=== PATIENT | female | born 1960 | race Caucasian/White ===

== ENCOUNTER 2019-09-03 11:23 | Inpatient (IN) ==
--- NOTE | 2019-09-03 14:30 | Diag Imaging Result Doc PS360 ---
ABDOMEN FLAT/UPRIGHT - 09/03/2019 INDICATION: abd pain; colon cancer COMPARISON: 08/06/2019 FINDINGS: There is a nonobstructive bowel gas pattern. No free air or abdominal calcifications. There is no constipation. IMPRESSION: No acute disease. Electronically signed by Marcelo Bethea 09/03/2019 2:28 PM
--- NOTE | 2019-09-03 14:30 | Diag Imaging Result Doc PS360 ---
CHEST-2 VIEWS - 09/03/2019 INDICATION: r/o pna COMPARISON: 07/22/2019 FINDINGS: The lungs are normally expanded and clear. Heart size and mediastinal contours are normal. No pneumothorax or pleural effusion. IMPRESSION: Negative exam. Electronically signed by Marcelo Bethea 09/03/2019 2:28 PM
--- NOTE | 2019-09-03 14:35 | HISTORY AND PHYSICAL ---
1. A patient of Dr. Jeffrey Sebastian, followed also by Dr. Fer Moss. Recently found to have metastatic colon cancer. This is a 59-year-old who apparently just had a colonoscopy. They found a mass in the colon. She is here for a partial colon resection. She initially thought she had pancreatic cancer but found she had colon cancer, I believe with multiple metastases to the liver on her CAT scan. She is under treatment with Dr. Moss. 2. History of headaches. 3. History of pelvic inflammatory disease with gonorrhea back in her 20s. PAST SURGICAL HISTORY: Tonsillectomy. FAMILY HISTORY: Of cancer both in her mom and dad. SOCIAL HISTORY: She smokes about a half pack of cigarettes a day. She has lost a lot of weight in the last several months. Denies any alcohol or illicit drugs. ALLERGIES: No known drug allergies. REVIEW OF SYSTEMS: General: She has lost weight from a poor appetite, anorexia, poor eating. Respiratory: No increased work of breathing or dyspnea. Cardiovascular: No chest pain or tachy palpitations. GI/ No gross hematuria, dysuria. Musculoskeletal/Neurologic: No significant complaints. Endocrinologic/hemologic: No significant history. PHYSICAL EXAMINATION: GENERAL: Today, awake and alert. HEENT: Pupils are equal. CVP less than 6 cm. LUNGS: Clear anterior and posterior. CARDIOVASCULAR EXAMINATION: Regular rhythm and rate without murmur or S3. ABDOMEN: Soft, nondistended, nontender. She is hurting mainly in her back, generalized pain. EXTREMITIES: No pedal edema. SKIN: No skin rashes. Oral and nasal mucosa unremarkable. ASSESSMENT/PLAN: 1. Metastatic colon cancer with liver metastasis found, coin lesion. Dr. Toledo is going to be following. We will check her CBC check T4, TSH, B12. We will give her some normal saline at 85 mL an hour. Consult Dr. Toledo, Dr. Moss. 2. Nutrition. Poor appetite aware. cc: MD CARA Blackman
--- NOTE | 2019-09-03 15:17 | EKG Report ---
Test Performed on : 09/03/2019 3:08:13 PM Test Reason : preop ekg; elijah roth Blood Pressure : / mmHG Vent. Rate : 085 BPM Atrial Rate : 085 BPM P-R Int : 144 ms QRS Dur : 074 ms QT Int : 384 ms P-R-T Axes : 081 060 060 degrees QTc Int : 456 ms Normal sinus rhythm. Normal ECG When compared with ECG of 26-JUN-2019 16:06, No significant change was found Confirmed by Bala MCKEON, Avery Trevizo ([id number]) on 09/04/2019 7:46:23 AM
[2019-09-03 15:36] LABS: BASO# 0.04 X1000 (0.0-0.2); BASO% 0.6 % (0.0-0.8); EOS# 0.11 X1000 (0.0-0.7); EOS% 1.6 % (0.0-10.0); HEMATOCRIT 35.5 % (37.0-47.0); HEMOGLOBIN 11.6 g/dL (12.0-16.0); LYMPH# 2.38 X1000 (1.2-3.4); MCHC 32.7 g/dL (33-37); MCV 94.9 FL (81-99); MONO# 0.86 X1000 (0.11-0.59); MONO% 12.3 % (1.7-9.3); MPV 8.6 FL (7.4-10.4); NEUT# 3.61 X1000 (1.4-6.5); NEUT% 51.5 % (42.2-75.2); PLT 401 X1000 (130-400); RBC 3.74 XMIL (4.2-5.4); RDW 15.5 % (11.5-14.5)
[2019-09-03 15:37] LABS: INR 1.05; PROTIME 13.9 Seconds (11.0-16.0)
[2019-09-03 15:38] LABS: PTT 30.6 Seconds (22.3-41.8)
[2019-09-03 15:40] LABS: AGAP 13; ALB/GLOB RATIO 1.4; ALBUMIN 4.1 g/dL (3.5-5.0); ALKALINE PHOSPHATASE 110 U/L (32-104); BUN 9 mg/dL (8-22); CALCIUM 8.9 mg/dL (8.8-10.2); CHLORIDE 99 mmol/L (98-107); CK TOTAL 147 U/L (24-173); COSMO 273; CREATININE 0.5 mg/dL (0.5-0.9); ESTIMATED GFR > 60; GLUCOSE 108 mg/dL (70-104); GOT 19 U/L (10-30); GPT 10 U/L (10-36); IRON SATURATION 12 %; MAGNESIUM 2.2 mg/dL (1.5-2.7); PHOSPHORUS 3.3 mg/dL (2.7-4.5); POTASSIUM 3.1 mmol/L (3.5-5.1); SODIUM 137 mmol/L (136-145); TCO2 25 mmol/L (25-35); TIBC 301 ug/dL; TOTAL BILIRUBIN 0.47 mg/dL (0.20-1.00); TOTAL IRON 37 ug/dL (49-151); UNBOUND IRON 264 ug/dL (112-346)
[2019-09-03] MEDS: MORPHINE IV PRN ×2 (15:51→23:34)
[2019-09-03] MEDS: NS 1,000 ML IV SCH (15:54)
[2019-09-03 16:07] LABS: FREE T4 1.31 ng/dL (0.93-1.70); TSH 1.54 uIUmL (0.27-4.20)
[2019-09-03 16:21] LABS: HEMOGLOBIN A1C 4.5 % (4.8-6.0)
[2019-09-03 16:39] LABS: BANDS 4 % (0-1); EOS 1 % (1-10); LYMPHS 44 % (21-51); MONO 2 % (1-9); SEGS 48 % (42-75)
--- NOTE | 2019-09-03 20:57 | GENERAL SURGERY CONSULTATION ---
DATE: 09/03/2019 REASON FOR CONSULTATION: Obstructing colon cancer, metastatic. CHIEF COMPLAINT: Abdominal pain. HISTORY OF PRESENT ILLNESS: This is a 59-year-old female who has been under the care of Dr. Moss. She has a large sigmoid mass and at the time of diagnosis was found to have hepatic metastasis. She developed some worsening abdominal pain. Dr. Yañez attempted colonoscopy and was unable to traverse the lesion and let along place a stent and so she has been admitted for management. She continues to pass gas. Her bowel movements have changed. She denies any significant bleeding. She has had some weight loss. Decreased appetite. She is already very small. MEDICAL HISTORY: Is significant for smoking use. She has a history of pelvic inflammatory disease in her 20s. She has chronic pain for which she takes opiates. SURGICAL HISTORY: No abdominal surgery. She had a tonsillectomy. FAMILY HISTORY: Is significant for lung and breast cancer I believe. SOCIAL HISTORY: She smokes a half pack a day. She also smokes marijuana, but no other drugs or alcohol. REVIEW OF SYSTEMS: Ten point review of systems was performed and negative otherwise as mentioned in the HPI. FAMILY HISTORY: As noted. MEDICATIONS: She takes Adderall and [place]. PHYSICAL EXAMINATION: Vital Signs: Temperature is 97.8 degrees, pulse 85, blood pressure 124/69, O2 saturation 99%. She is 91 pounds, 5 foot 3. General: She is alert, in no acute distress. HEENT: No scleral icterus. No cervical mass. Cardiovascular: Normal rate. Pulmonary: No increased work of breathing. Abdomen: Soft, nontender. Integument: Warm, dry without jaundice. Psychiatric: Appropriate affect. Neurologic: No gross deficits. Musculoskeletal: She does have some muscle atrophy throughout. Lymphatic: No cervical, axillary or inguinal adenopathy. LABS: White count 7, hematocrit 35, platelets 401,000. Creatinine is 0.5. Mild elevation in her alkaline phosphatase. Her albumin is 4.1. I reviewed her imaging. ASSESSMENT AND PLAN: A 59-year-old female with metastatic sigmoid colon cancer. I have recommended operation tomorrow lap hand-assisted sigmoid colectomy most likely with end colostomy given her obstruction, malnutrition, ongoing smoking as well as to facilitate her palliative chemotherapy. We discussed risk of bleeding, infection, anastomotic leak, and conversion to open, anticipated recovery, possibility of a colostomy. She understands all this and consents. We will make her NPO at midnight, but really only sips for comfort in the meantime with IV hydration and plan for surgery tomorrow. cc: Vicki Schmidt MD
[2019-09-03] MEDS: ZOFRAN IV PRN (23:34)
[2019-09-04] MEDS: NS 1,000 ML IV SCH ×2 (05:10→15:32)
[2019-09-04] MEDS ORDERED: DIPRIVAN 1% ONE (06:20)
[2019-09-04] MEDS ORDERED: VERSED ONE (06:20)
[2019-09-04] MEDS ORDERED: FENTANYL ONE (06:20)
[2019-09-04] MEDS ORDERED: XYLOCAINE-MPF 2% ONE (06:28)
[2019-09-04] MEDS ORDERED: NEO-SYNEPHRINE ONE (06:34)
[2019-09-04] MEDS ORDERED: ROBINUL ONE ×2 (06:34→08:57)
[2019-09-04] MEDS ORDERED: ZOFRAN ONE (06:34)
[2019-09-04] MEDS ORDERED: STERILE WATER INJ. ONE (06:34)
[2019-09-04] MEDS ORDERED: NORCURON ONE (06:34)
[2019-09-04] MEDS ORDERED: SENSORCAINE 0.25%/EPI 1:200,000 ONE (06:35)
[2019-09-04] MEDS ORDERED: LR 1,000 ML ONE (06:35)
[2019-09-04] MEDS ORDERED: QUELICIN (DOSE) ONE (06:40)
[2019-09-04] MEDS ORDERED: MARCAINE 0.25% PF ONE (06:42)
[2019-09-04] MEDS ORDERED: EXPAREL 1.3% ONE (06:42)
[2019-09-04] MEDS ORDERED: SODIUM CHLORIDE 0.9% 10 ML ONE (06:42)
[2019-09-04 06:51] LABS: BASO# 0.05 X1000 (0.0-0.2); EOS# 0.07 X1000 (0.0-0.7); EOS% 1.3 % (0.0-10.0); HEMATOCRIT 32.6 % (37.0-47.0); HEMOGLOBIN 10.4 g/dL (12.0-16.0); LYMPH% 28.5 % (20.5-51.1); MCH 30.2 PG (27-31); MCHC 31.9 g/dL (33-37); MCV 94.8 FL (81-99); MONO# 0.47 X1000 (0.11-0.59); MONO% 8.9 % (1.7-9.3); MPV 8.5 FL (7.4-10.4); NEUT# 3.17 X1000 (1.4-6.5); NEUT% 60.3 % (42.2-75.2); PLT 404 X1000 (130-400); RBC 3.44 XMIL (4.2-5.4); RDW 15.2 % (11.5-14.5); WBC 5.26 X1000 (4.8-10.8)
[2019-09-04] MEDS ORDERED: INVANZ 1 GM/NS 1 GM/50 ML IVPB IV ONE (07:00)
[2019-09-04 07:12] LABS: AGAP 13; ALB/GLOB RATIO 1.3; ALBUMIN 3.7 g/dL (3.5-5.0); ALKALINE PHOSPHATASE 105 U/L (32-104); BUN 6 mg/dL (8-22); CALCIUM 8.9 mg/dL (8.8-10.2); CHLORIDE 105 mmol/L (98-107); COSMO 278; CREATININE 0.6 mg/dL (0.5-0.9); ESTIMATED GFR > 60; GLUCOSE 79 mg/dL (70-104); GOT 20 U/L (10-30); GPT 10 U/L (10-36); MAGNESIUM 2.1 mg/dL (1.5-2.7); POTASSIUM 4.1 mmol/L (3.5-5.1); SODIUM 141 mmol/L (136-145); TCO2 23 mmol/L (25-35); TOTAL BILIRUBIN 0.71 mg/dL (0.20-1.00); TOTAL PROTEIN 6.5 g/dL (6.3-8.3)
[2019-09-04] MEDS ORDERED: DECADRON ONE (07:49)
[2019-09-04] MEDS ORDERED: EPHEDRINE ONE (07:54)
[2019-09-04] MEDS ORDERED: OFIRMEV 1000 MG/ISOTONIC SOLN 1,000 MG/100 ML BOTTLE ONE (08:38)
[2019-09-04] MEDS ORDERED: NEOSTIGMINE ONE (08:57)
[2019-09-04 09:11] LABS: URINE SOURCE CATH
[2019-09-04 09:19] LABS: BILIRUBIN URINE NEGATIVE (NEGATIVE); BLOOD URINE NEGATIVE (NEGATIVE); COLOR YELLOW; GLUCOSE URINE NEGATIVE (NEGATIVE); KETONE URINE NEGATIVE (NEGATIVE); LEUKOCYTES URINE NEGATIVE (NEGATIVE); NITRITE URINE NEGATIVE (NEGATIVE); PH URINE 6.5; PROTEIN URINE NEGATIVE (NEGATIVE); SP GRAVITY URINE 1.013; TURBIDITY URINE HAZY (CLEAR); UROBILINOGEN URINE 2 mg/dL (NORMAL)
[2019-09-04 09:20] LABS: UR EPITHELIAL CELLS <10 /HPF (<10); URINE BACTERIA 3+ /HPF; URINE RBC <10 /HPF (<10); URINE WBC <10 /HPF (<10)
[2019-09-04] MEDS: DILAUDID ONE ×4 (09:29→09:43)
[2019-09-04] MEDS: PHENERGAN ONE (09:50)
--- NOTE | 2019-09-04 10:11 | PROGRESS NOTE ---
DATE: 09/04/2019 SUBJECTIVE: She was admitted. She has obstructing colon cancer metastatic. Dr. Jeffrey Sebastian and has been under the care of Dr. Moss. Large sigmoid mass diagnosis, and was found to have hepatic metastasis. She developed worsening abdominal pain. GI tried to do a colonoscopy, but unable to transverse the lesion, let alone place a stent so she was admitted for further evaluation and probable surgery. The only significant history is she has a history of smoking, history of pelvic inflammatory disease in her 20s, and chronic pain for which she takes opiates. So the plan is for surgery this morning. OBJECTIVE: Vital Signs: Temperature 97.1 degrees, pulse 60, respirations 14, and blood pressure 122/78 HEENT: Pupils are equal and round. Lungs: Clear in all lung ramos. Cardiovascular: Regular rhythm and rate without murmur or S3. Abdomen: Soft. Skin: Warm and dry. LABORATORY: Urine output was 1000 mL. REVIEW OF ORDERS: I do not see any change. She is on ertapenem, she has got 1 g IV for surgery. cc: Cramine Mcleod MD
[2019-09-04] MEDS: MORPHINE IV PRN ×3 (12:00→20:19)
--- NOTE | 2019-09-04 13:14 | HEMO/ONC CONSULTATION ---
DATE: 09/04/2019 REASON FOR CONSULTATION: This is a known patient of ours for the treatment of colon adenocarcinoma with liver metastasis. HISTORY OF PRESENT ILLNESS: The patient was admitted yesterday for resection of her obstructing sigmoid mass. The patient had a colonoscopy on Monday, and was found to have an obstructing large sigmoid mass. She had an increase in her abdominal pain. She denies any change in bowel movements, any rectal bleeding or melena, or any nausea, vomiting, or diarrhea. Her prior staging scans have revealed diffuse liver metastasis. PAST MEDICAL HISTORY: Adult ADD. Chronic pain. Smoker. Chronic headaches. PAST SURGICAL HISTORY: Tonsillectomy. SOCIAL HISTORY: The patient smokes about half a pack of cigarettes a day. She denies any alcohol use. The patient smokes 2 to 3 marijuana joints per day. Denies any other illicit drug use. ALLERGIES: No known drug allergies. HOME MEDICATIONS: [place] 10 and Adderall 30 mg b.i.d. REVIEW OF SYSTEMS: The patient is positive for weight loss, fevers, night sweats, fatigue, and abdominal pain. She also has chronic back pain with arthritis and chronic headaches. PHYSICAL EXAMINATION: Vital Signs: Temperature 97.4 degrees, pulse rate 68, respiratory rate 14, blood pressure 156/72, and O2 saturation 100% on 2 L via nasal cannula. She is in 10/10 abdominal pain. General: The patient is anxious, but otherwise in no acute distress. HEENT: Sclerae is anicteric. PERRLA. Respiratory: Lung sounds are clear to auscultation. Normal respiratory effort. Cardiovascular: Normal S1, S2. Heart rate and rhythm is regular. Abdomen: Soft. Nondistended. Nontender. Extremities: No edema is noted. Skin: Warm, dry, and intact without ecchymosis or petechiae. Neurologic: Alert and oriented x3. No focal motor deficits. LABORATORY: WBCs 5.26, hemoglobin 10.4, hematocrit 32.6, and platelet count 404,000. Magnesium 2.1. Iron and B12 adequate. Folate 8.4. ASSESSMENT AND PLAN: 1. Metastatic colon adenocarcinoma with liver metastasis, obstructing sigmoid mass found on colonoscopy. Dr. Schmidt has taken her to the OR today for colon resection. Continue management per medical and surgical staff. She will continue to follow closely and await pathology. After recovery, need to start palliative chemotherapy. Dictated by JOSE Nation for Fer Moss MD cc: Fer Moss MD [facility]
[2019-09-04] MEDS: ULTRAM PO PRN (13:35)
[2019-09-04] MEDS: OFIRMEV 1000 MG/ISOTONIC SOLN 1,000 MG/100 ML BOTTLE IV SCH ×2 (15:29→20:18)
[2019-09-04] MEDS: PERIDEX MT SCH (20:18)
[2019-09-04] MEDS: SODIUM CHLORIDE 0.9% INJ PRN (20:19)
[2019-09-04] MEDS: PHENERGAN IV PRN (20:19)
--- NOTE | 2019-09-04 20:40 | OPERATIVE NOTE ---
PROCEDURE DATE: 09/04/2019 PREOPERATIVE DIAGNOSIS: Obstructive sigmoid rectal cancer. POSTOPERATIVE DIAGNOSIS: Obstructive sigmoid rectal cancer. PROCEDURE PERFORMED: Laparoscopic hand assisted low anterior resection with end colostomy and mobilization of the splenic flexure. ESTIMATED BLOOD LOSS: 20 mL. SPECIMENS: Sigmoid colon and proximal rectum. ANESTHESIA: General with TAP block. OPERATIVE FINDINGS: There was a tattooed lesion, large segment, apple core type lesion, in the distal sigmoid/proximal rectum with proximal dilation. There were some adjacent peritoneal implants that appeared consistent with focal carcinomatosis. This was adherent to the left lateral pelvic sidewall. OPERATIVE NOTE: Risks, benefits, and alternatives were discussed with the patient and she consented to the procedure. Seen preoperatively. Surgical site was confirmed. She was taken to the operating room and placed in supine position. General anesthesia was induced. A TAP block was performed by Anesthesia. For details, please see dictated operative note. She was placed in lithotomy and a Day catheter was placed, and her abdomen was prepped with chlorhexidine solution and draped in the usual fashion. After time-out, we made a periumbilical incision for our hand port and carried this down through the fascia, incised the fascia, and entered the abdomen in an open controlled fashion. A GelPort was placed and we then placed an 11 mm trocar in the supraumbilical midline, and insufflated the abdomen. We inspected and then placed a right lower quadrant 5 mm trocar lateral to the inferior epigastric vessels. Using a LigaSure, we began mobilizing the lateral attachments. After fully mobilizing this, we carried our mobilization along the white line of Toldt up to and taking down the splenic flexure to provide adequate reach for the colostomy. We then identified the feeding vessels. Given her known metastatic disease and no visible pathologically enlarged lymph nodes, we took these at the bifurcation including the sigmoid branch, but we did preserve a left colonic branch to provide adequate perfusion to the colostomy. We did mobilize this to provide adequate reach. After fully mobilizing, we did protect the retroperitoneal structures and ureters. The colon was adherent to the left ovary, but we were able to mobilize this off. There was no evidence of ovarian neoplasm. At this point, we desufflated, brought the colon out through the hand port, and using the KG 80 mm blue load staple, we resected proximally and distally. The colostomy incision was made in the left lower quadrant through the rectus, and the colostomy was brought out. We then closed the fascia with #1 PDS and 0 Vicryl at the port site, and the skin was closed with 4-0 Monocryl in subcuticular fashion. There was no contamination in this portion. We excluded the incisions and then matured our colostomy in Dulce Maria fashion with 3-0 Vicryl suture. She tolerated this well. Ostomy appliance was placed as well as Dermabond to her incision. She was awoken and transferred to the recovery area. There was no family available. cc: Vicki Schmidt MD
[2019-09-05] MEDS: OFIRMEV 1000 MG/ISOTONIC SOLN 1,000 MG/100 ML BOTTLE IV SCH ×2 (02:27→08:52)
[2019-09-05] MEDS: MORPHINE IV PRN ×7 (02:33→22:05)
[2019-09-05] MEDS: ULTRAM PO PRN ×2 (07:25→17:45)
--- NOTE | 2019-09-05 08:12 | GENERAL SURGERY PROGRESS NOTE ---
DATE: 09/05/2019 SUBJECTIVE: She is doing well. No ostomy output yet. Pain is controlled. No fevers. No tachycardia. Blood pressure 115/68. Urine output has been adequate. No new labs yet this morning. ASSESSMENT AND PLAN: This is a 59-year-old female status post [*] hand-assisted low anterior resection with end colostomy for obstructing metastatic colon cancer. Will discontinue her Day today. Encourage her to be out of bed and ambulating, pulmonary toileting, intravenous hydration. cc: Vicki Schmidt MD
[2019-09-05] MEDS: MAG-OX PO SCH (08:43)
[2019-09-05] MEDS: NS 1,000 ML IV SCH ×2 (08:46→20:54)
[2019-09-05] MEDS: LOVENOX SUBQ SCH (08:53)
[2019-09-05] MEDS: PERIDEX MT SCH ×2 (08:55→20:54)
--- NOTE | 2019-09-05 09:05 | PROGRESS NOTE ---
DATE: 09/05/2019 SUBJECTIVE: She had a pretty good night, is comfortable at the present time. Just had her surgery yesterday. OBJECTIVE: Vital Signs: Temp 97.7 degrees, pulse 92, respirations 16, blood pressure 137/71. HEENT: Pupils are equal and round. Lungs: Clear in all lung ramos. Cardiovascular: Regular rhythm and rate without murmur or S3. Urine output is a little over 4000 mL. ASSESSMENT AND PLAN: Hand-assisted low anterior resection with end colostomy for obstructive metastatic colon cancer. Continue her Day catheter in, and work towards getting out of bed, pulmonary toilet, and intravenous hydration. She appears comfortable at this time. REVIEW OF ORDERS: Getting morphine 2 mg IV every 3 hours p.r.n., Lovenox 40 mg subcutaneously every 24 hours, normal saline at 85 mL an hour, tramadol 50 mg every 6 hours p.r.n., and on Zosyn 3.375 grams intravenously every 6 hours, ertapenem she got 1 gram one time before surgery. cc: Carmine Mcleod MD
[2019-09-05] MEDS: ZOSYN 3.375 GM in NS 50 ML IV SCH ×3 (09:07→20:54)
[2019-09-05] MEDS: DILAUDID ONE (16:58)
[2019-09-05] MEDS: PHENERGAN ONE (16:58)
[2019-09-05] MEDS: SODIUM CHLORIDE 0.9% INJ PRN (22:05)
[2019-09-05] MEDS: PHENERGAN IV PRN (22:05)
[2019-09-06] MEDS: NS 1,000 ML IV SCH ×3 (01:08→18:21)
[2019-09-06] MEDS: ZOSYN 3.375 GM in NS 50 ML IV SCH ×4 (02:32→21:40)
[2019-09-06] MEDS: ULTRAM PO PRN ×2 (02:32→14:40)
[2019-09-06] MEDS: SODIUM CHLORIDE 0.9% INJ PRN (04:38)
[2019-09-06] MEDS: MORPHINE IV PRN ×5 (04:38→21:47)
[2019-09-06] MEDS: PHENERGAN IV PRN (04:38)
[2019-09-06] MEDS: MAG-OX PO SCH (08:23)
[2019-09-06] MEDS: LOVENOX SUBQ SCH (08:23)
[2019-09-06] MEDS: PERIDEX MT SCH ×2 (08:23→21:39)
--- NOTE | 2019-09-06 10:16 | PROGRESS NOTE ---
DATE: 09/06/2019 SUBJECTIVE: Ms. Coe had a pretty good night. She slept. She is hurting. Feels a little better than yesterday. OBJECTIVE: Vital signs: Temp 98.6 degrees, pulse 108, respirations 20, blood pressure 146/93. HEENT: Pupils are equal and round. Lungs: Are clear in all lung ramos. Cardiovascular: Regular rhythm and rate without murmur or S3. URINE OUTPUT: Was 3700 mL. ASSESSMENT AND PLAN: Status post hand assisted anterior resection with end colostomy and for obstructive metastatic colon cancer. Day catheter in place. Awaiting on return of peristalsis. Continue IV hydration seems to be comfortable. On review of orders, I do not see any change. Lab is unremarkable. We will check electrolytes and CBC again in the morning. cc: Carmine Mcleod MD
--- NOTE | 2019-09-06 15:04 | GENERAL SURGERY PROGRESS NOTE ---
DATE: 09/06/2019 SUBJECTIVE: Doing well. Pain is controlled. She is ambulating. She voided. She is tolerating some p.o., a little bit of flatus from her bag. Reviewed her vital signs, reviewed her labs. Abdomen is soft. ASSESSMENT AND PLAN: A 59-year-old female status post laparoscopic low anterior resection with end colostomy. She is doing well. Will continue ostomy education, advancing her diet as tolerated, out of bed and mobilizing and will let her go home when she has consistent return of ostomy function. cc: Vicki Schmidt MD
[2019-09-07] MEDS: MORPHINE IV PRN ×3 (03:57→15:30)
[2019-09-07] MEDS: ZOFRAN IV PRN ×2 (03:58→21:13)
[2019-09-07] MEDS: ZOSYN 3.375 GM in NS 50 ML IV SCH ×4 (04:01→21:12)
[2019-09-07] MEDS: NS 1,000 ML IV SCH ×2 (04:12→17:52)
[2019-09-07] MEDS: PHENERGAN IV PRN ×3 (04:36→18:36)
[2019-09-07 05:53] LABS: BASO# 0.01 X1000 (0.0-0.2); BASO% 0.1 % (0.0-0.8); EOS# 0.01 X1000 (0.0-0.7); EOS% 0.1 % (0.0-10.0); HEMATOCRIT 35.7 % (37.0-47.0); HEMOGLOBIN 11.6 g/dL (12.0-16.0); LYMPH# 0.98 X1000 (1.2-3.4); LYMPH% 11.4 % (20.5-51.1); MCH 30.4 PG (27-31); MCHC 32.5 g/dL (33-37); MCV 93.5 FL (81-99); MONO# 0.57 X1000 (0.11-0.59); MONO% 6.7 % (1.7-9.3); MPV 8.8 FL (7.4-10.4); NEUT# 6.99 X1000 (1.4-6.5); NEUT% 81.7 % (42.2-75.2); PLT 524 X1000 (130-400); RBC 3.82 XMIL (4.2-5.4); WBC 8.56 X1000 (4.8-10.8)
[2019-09-07 06:36] LABS: AGAP 13; BUN 13 mg/dL (8-22); CALCIUM 8.5 mg/dL (8.8-10.2); CHLORIDE 100 mmol/L (98-107); COSMO 276; CREATININE 0.5 mg/dL (0.5-0.9); ESTIMATED GFR > 60; GLUCOSE 137 mg/dL (70-104); MAGNESIUM 1.9 mg/dL (1.5-2.7); POTASSIUM 4.4 mmol/L (3.5-5.1); SODIUM 137 mmol/L (136-145); TCO2 24 mmol/L (25-35)
[2019-09-07] MEDS: MAG-OX PO SCH (08:34)
[2019-09-07] MEDS: LOVENOX SUBQ SCH (08:34)
[2019-09-07] MEDS: PERIDEX MT SCH ×2 (08:34→21:13)
--- NOTE | 2019-09-07 08:44 | PROGRESS NOTE ---
DATE: 09/07/2019 SUBJECTIVE: Ms. Opal Coe is a 59-year-old female who 3 days ago underwent a laparoscopic hand-assisted low anterior colon resection with end colostomy and mobilization of the splenic flexure per Dr. Schmidt. She vomited this morning. She has no NG tube. OBJECTIVE: Her abdomen is distended but not tightly. Her ostomy is viable; there has been no output. Her heart rate is 103 blood pressure 167/93, O2 saturation 99%. She is afebrile. She is on IV Zosyn. Her white blood cell count is normal. Hematocrit is 36%. BUN and creatinine are 13 and 0.5. Her trocar sites seem to be healing well. There is no abnormal tenderness involving her abdomen. PLAN: We may have to place an NG tube if she continues to be nauseated. She asked that we not do it this morning. We will continue to have her increase her activity. She is on liquids and we will leave her on a clear liquid diet this morning. We will continue IV Zosyn for now. cc: Shana Arias MD
--- NOTE | 2019-09-07 11:19 | PROGRESS NOTE ---
DATE: 09/07/2019 SUBJECTIVE: Ms. Coe is feeling better, not much bowel activity. She was sitting up breathing comfortably. OBJECTIVE: Vital Signs: Temperature 98.6 degrees, pulse 103, respirations 18, blood pressure 167/93. Eyes: Pupils are equal and round. Lungs: Lungs are clear in all lung ramos. Cardiovascular exam: Regular rhythm and rate without murmur or S3. Abdomen: Abdomen is soft. Skin: Skin is warm and dry. ASSESSMENT AND PLAN: Considering placing a nasogastric tube if she continues nausea, but that seems to be better today this morning though. She has not reported passing any gas or flatus at this time. Did not increase her activity. She is on intravenous Zosyn. She is status post laparoscopic low anterior resection with end colostomy. She seems to be progressing. Waiting on peristalsis. cc: Carmine Mcleod MD
--- NOTE | 2019-09-07 11:28 | HEMO/ONC PROGRESS NOTE ---
DATE: 09/07/2019 SUBJECTIVE: The patient is lying comfortably in bed with her eyes closed. She states that she is "okay." She admits that she is a little sore but otherwise doing well. She appears tired this morning. She is having a significant amount of nausea still. She is currently attempting take in clear liquids, she asked for a Sprite this morning. She had no significant events overnight. OBJECTIVE: Vital Signs: Temperature 98.6 degrees, pulse rate 113, respiratory rate 18, blood pressure 167/93, O2 saturation 96% on room air. She is in 8/10 abdominal pain. General: The patient is in no acute distress. HEENT: Sclerae anicteric. Oral mucosa is normal. Patient does not have her dentures in place. Cardiovascular: Normal S1, S2. Heart rate and rhythm regular. Respiratory: Lung sounds are clear to auscultation. Normal respiratory effort. Gastrointestinal: Abdomen is soft and nontender. New ostomy bag in place with pink healthy stoma visible. Extremities: No lower extremity edema. Patient is able to move all extremities at will. LABORATORY: WBC is 8.56, hemoglobin 11.6, hematocrit 35.7, platelet count 524,000. ASSESSMENT AND PLAN: Metastatic colon adenocarcinoma with liver metastasis, obstructing sigmoid mass found on colonoscopy. She is day 3 from laparoscopic hand-assisted low anterior colon resection with end colostomy and mobilization of the splenic flexure per Dr. Schmidt. Patient is under the care of surgical management at this time. Although nauseous, she appears to be doing very well. We are continuing to await pathology. We will start palliative chemotherapy after discharge. We will continue to follow peripherally. Please let us know if we are needed. We will follow up with the patient in the office outpatient. Dictated by JOSE Nation for Fer Moss MD cc: MD CARA Golden
[2019-09-07] MEDS: SODIUM CHLORIDE 0.9% INJ PRN ×2 (11:36→18:36)
[2019-09-08] MEDS: SODIUM CHLORIDE 0.9% INJ PRN ×4 (00:39→21:32)
[2019-09-08] MEDS: PHENERGAN IV PRN ×4 (00:39→21:32)
[2019-09-08] MEDS: ZOSYN 3.375 GM in NS 50 ML IV SCH ×4 (03:03→21:32)
[2019-09-08] MEDS: MORPHINE IV PRN ×2 (03:04→22:34)
[2019-09-08] MEDS: NS 1,000 ML IV SCH ×2 (03:04→19:09)
[2019-09-08] MEDS: ZOFRAN IV PRN (03:04)
[2019-09-08] MEDS: ULTRAM PO PRN ×3 (06:49→21:32)
[2019-09-08] MEDS: PERIDEX MT SCH ×2 (08:30→21:37)
[2019-09-08] MEDS: MAG-OX PO SCH (08:30)
[2019-09-08] MEDS: LOVENOX SUBQ SCH (08:30)
--- NOTE | 2019-09-08 09:47 | PROGRESS NOTE ---
DATE: 09/08/2019 SUBJECTIVE: Ms. Coe still has a good deal of nausea. She is not having any nausea right now but through the night, she has more trouble and just takes a couple sips of water. She still says she has to throw it back up. OBJECTIVE: Temperature 98.1 degrees, pulse 106, respirations 18, blood pressure 158/93. Pupils are equal and round. Lungs are clear in all lung ramos. Cardiovascular Examination: Regular rhythm and rate without murmur or S3. Abdomen is soft, nondistended. Colostomy unremarkable. She is having some mucus output from the colostomy. Urine output is 2100 mL. ASSESSMENT AND PLAN: Metastatic colon cancer, adenocarcinoma with liver metastasis, obstructing sigmoid mass found at colonoscopy. This is day 4 status post laparoscopic, hand-assisted low anterior colon resection with colostomy, mobilization of the splenic flexure per Dr. Schmidt. Patient still has some nausea. Waiting on peristalsis to improve. Continue to await pathology. The plan is to start some palliative chemotherapy. I am going to try her on some Reglan. See if a prokinetic will help decrease the nausea. We will just give her scheduled Reglan 10 mg intravenous every 6 hours. She is on normal saline at 85 mL an hour and she is getting Zosyn 3.375 g intravenous every 6 hours. She is on Lovenox 40 mg subcutaneous daily. cc: Carmine Mcleod MD
--- NOTE | 2019-09-08 09:54 | PROGRESS NOTE ---
DATE: 09/08/2019 SUBJECTIVE: Ms. Opal Coe is status post laparoscopic assisted colon resection per Dr. Schmidt with end-colostomy for obstructing cancer. She has had vomiting over the last 24 hours. She does not want an NG tube. She has had no output from her ostomy. Her abdomen is somewhat distended but not tightly so. She is good about sitting in a chair. OBJECTIVE: Her heart rate 106, blood pressure 158/93, O2 saturation 100%. She is afebrile. Her incision seems to be healing well. Her ostomy is viable but just no output. She has been on clear liquid diet. We will not advance that. She has been on IV antibiotics per Dr. Schmidt. Her last white blood cell count was normal. We will check labs in the morning. cc: Shana Arias MD
[2019-09-08] MEDS: REGLAN IV SCH ×2 (13:09→18:27)
[2019-09-09] MEDS: REGLAN IV SCH ×4 (00:45→18:55)
[2019-09-09] MEDS: ZOSYN 3.375 GM in NS 50 ML IV SCH ×3 (02:08→19:47)
[2019-09-09] MEDS: PHENERGAN IV PRN ×2 (04:58→12:59)
[2019-09-09] MEDS: ULTRAM PO PRN (04:58)
[2019-09-09 07:08] LABS: BASO# 0.02 X1000 (0.0-0.2); BASO% 0.3 % (0.0-0.8); EOS# 0.02 X1000 (0.0-0.7); EOS% 0.3 % (0.0-10.0); HEMATOCRIT 34.1 % (37.0-47.0); HEMOGLOBIN 11.1 g/dL (12.0-16.0); LYMPH# 1.38 X1000 (1.2-3.4); LYMPH% 18.5 % (20.5-51.1); MCH 30.4 PG (27-31); MCHC 32.6 g/dL (33-37); MCV 93.4 FL (81-99); MONO# 0.94 X1000 (0.11-0.59); MONO% 12.6 % (1.7-9.3); MPV 8.7 FL (7.4-10.4); NEUT% 68.3 % (42.2-75.2); PLT 489 X1000 (130-400); RBC 3.65 XMIL (4.2-5.4); RDW 15.1 % (11.5-14.5); WBC 7.46 X1000 (4.8-10.8)
[2019-09-09 07:24] LABS: AGAP 15; BUN 20 mg/dL (8-22); CALCIUM 8.4 mg/dL (8.8-10.2); CHLORIDE 100 mmol/L (98-107); COSMO 272; CREATININE 0.4 mg/dL (0.5-0.9); ESTIMATED GFR > 60; GLUCOSE 83 mg/dL (70-104); POTASSIUM 3.7 mmol/L (3.5-5.1); SODIUM 135 mmol/L (136-145); TCO2 20 mmol/L (25-35)
--- NOTE | 2019-09-09 09:17 | PROGRESS NOTE ---
DATE: 09/09/2019 SUBJECTIVE: Ms. Coe is still having nausea. We are having trouble with her peripheral IV, so we are going to put a PICC line. She is getting some mucus drainage in her colostomy and feeling some gas as well. OBJECTIVE: Vital Signs: Temperature 97.6 degrees, pulse 100, respirations 16, blood pressure 160/88. HEENT: Pupils are equal and round. Lungs: Clear in all lung ramos. Cardiovascular: Regular rhythm and rate without murmur or S3. Abdomen: Soft. Skin: Warm and dry. LABORATORY DATA: Reviewed labs from yesterday. White count 7460, hematocrit 34, platelet count 489,000. Sodium 135, potassium 3.7, chloride 100, BUN 20, creatinine 0.4. ASSESSMENT AND PLAN: The patient is status post laparoscopic-assisted anterior colon resection with end colostomy for obstructing colon cancer. Still has nausea. I think we are going to put a PICC line in. We might be able to give her fluids and antiemetics, so we will do that today. She is passing gas. Still have her on Zosyn 3.375 g IV q.6. I am giving her Reglan 10 mg IV q.6 hours as well. Continue present regimen. cc: Carmine Mcleod MD
[2019-09-09 10:26] LABS: INR 1.14; PROTIME 14.8 Seconds (11.0-16.0)
[2019-09-09] MEDS ORDERED: NS 250 ML ONE (10:59)
[2019-09-09] MEDS: MORPHINE IV PRN ×3 (12:59→23:15)
[2019-09-09] MEDS: SODIUM CHLORIDE 0.9% INJ PRN (12:59)
[2019-09-09] MEDS: NS 1,000 ML IV SCH ×2 (13:00→15:09)
[2019-09-09] MEDS: LOVENOX SUBQ SCH (13:01)
[2019-09-09] MEDS: MAG-OX PO SCH (15:10)
[2019-09-09] MEDS: PERIDEX MT SCH ×2 (17:07→19:47)
--- NOTE | 2019-09-09 19:51 | GENERAL SURGERY PROGRESS NOTE ---
DATE: 09/09/2019 SUBJECTIVE: Still continues to have nausea, vomiting, although she is having ostomy output. No fevers. Low-grade tachycardia blood pressure 132/109. LABORATORIES: Her white count is normal at 7, hematocrit 34, creatinine 0.4, potassium 3.7. Urine output has been adequate. ABDOMINAL EXAMINATION: Her abdomen is soft. Incisions are intact. Ostomy is pink, viable. She does have some urine in the bag, but no stool yet. ASSESSMENT AND PLAN: This is a 59-year-old female status post low anterior resection with end colostomy for obstructing colon cancer. She has a resolving ileus. Given her resumption of flatus, I have encouraged her to be NPO and to ambulate as much as possible. Hopefully with continued resumption in her ostomy output, we can begin advancing her diet. If it worsens, we will need to place a nasogastric tube. I did discuss this, but she does not want it at this time. cc: Vicki Schmidt MD
[2019-09-09] MEDS: ZOFRAN IV PRN (23:15)
[2019-09-10] MEDS: REGLAN IV SCH ×3 (00:42→19:00)
[2019-09-10] MEDS: NS 1,000 ML IV SCH ×3 (00:42→14:36)
[2019-09-10] MEDS: ZOSYN 3.375 GM in NS 50 ML IV SCH ×4 (02:19→20:08)
[2019-09-10] MEDS: PERIDEX MT SCH ×3 (04:57→20:08)
[2019-09-10] MEDS: ZOFRAN IV PRN ×4 (05:47→23:13)
[2019-09-10] MEDS: MORPHINE IV PRN ×4 (05:47→23:13)
[2019-09-10] MEDS: LOVENOX SUBQ SCH (08:31)
[2019-09-10] MEDS: MAG-OX PO SCH (08:31)
[2019-09-10] MEDS: ULTRAM PO PRN ×2 (12:00→18:13)
[2019-09-10] MEDS: PHENERGAN IV PRN (15:45)
[2019-09-10] MEDS: SODIUM CHLORIDE 0.9% INJ PRN (15:45)
--- NOTE | 2019-09-10 15:47 | GENERAL SURGERY PROGRESS NOTE ---
DATE: 09/10/2019 SUBJECTIVE: She began passing more flatus per colostomy, a little bit of stool in the bag. She still has some intermittent nausea and reflux she describes. No fevers. Low-grade tachycardia. OBJECTIVE: Blood pressure 136/82. Abdomen is soft. Ostomy is pink, viable. She is nondistended. LABS: White count 6. Hematocrit 34. Creatinine 0.4. ASSESSMENT: This is a 59-year-old female status post Dimitri's procedure low anterior with an end-colostomy for obstructing colon cancer. Her pathology has shown an invasive carcinoma T4 with 19 of 23 lymph nodes positive and positive circumferential margin. PLAN: Will allow her ileus to resolve. Katherin Dunn continues to work with her. She is on prophylactic Lovenox. It looks as though her PPI has fallen off; we will start this back intravenously. cc: Vicki Schmidt MD
[2019-09-10] MEDS: SODIUM CHLORIDE 0.9% INJ SCH (20:08)
[2019-09-10] MEDS: NEXIUM IV SCH (23:04)
[2019-09-11] MEDS: REGLAN IV SCH ×4 (00:49→18:30)
[2019-09-11] MEDS: NS 1,000 ML IV SCH ×3 (03:05→17:44)
[2019-09-11] MEDS: ZOSYN 3.375 GM in NS 50 ML IV SCH ×4 (03:05→20:34)
[2019-09-11] MEDS: ULTRAM PO PRN ×2 (09:01→18:30)
[2019-09-11] MEDS: NEXIUM IV SCH ×2 (09:01→20:34)
[2019-09-11] MEDS: ZOFRAN IV PRN (09:01)
[2019-09-11] MEDS: SODIUM CHLORIDE 0.9% INJ SCH ×2 (09:01→20:34)
[2019-09-11] MEDS: PERIDEX MT SCH ×2 (09:01→20:33)
[2019-09-11] MEDS: MAG-OX PO SCH (09:01)
[2019-09-11] MEDS: LOVENOX SUBQ SCH (09:02)
[2019-09-11] MEDS: MORPHINE IV PRN ×2 (16:11→22:16)
--- NOTE | 2019-09-11 18:57 | PROGRESS NOTE ---
DATE: 09/11/2019 SUBJECTIVE: Patient has no major complaints. She seems in a better mood today, but still not much ostomy output. OBJECTIVE: Vital Signs: Blood pressure 146/71, heart rate 97, respiratory rate 16, temperature 98.2 degrees. Cardiovascular: Regular rate and rhythm. Pulmonary: Bilateral breath sounds. Clear to auscultation. GI: Soft, nontender, nondistended. Bowel sounds are positive. LABORATORY DATA: White count 7, hemoglobin and hematocrit 11 and 34, platelets 489,000. Basic was normal. PROBLEM LIST: Obstructing colon cancer, status post colon resection with colostomy. She is still having some postoperative ileus, but she does have some output from her ostomy, just not enough that they have progressed with her diet at this point, so mainly she is surgical care. We are kind of just monitoring her other issues, but she does not really have any major medical issues. Plan will be to continue to follow. Disposition at the discretion of surgery and will advance her diet, I guess hopefully soon, maybe full liquids tomorrow at the discretion of Surgery. She is 107 pounds. I think we can just do 30 of Lovenox. She is definitely below 70 kg, so we will continue to follow. cc: Kervin Winston MD
[2019-09-11] MEDS: PHENERGAN IV PRN (22:16)
--- NOTE | 2019-09-11 22:30 | GENERAL SURGERY PROGRESS NOTE ---
DATE: 09/11/2019 SUBJECTIVE: She is having more output from her ostomy. No more vomiting. OBJECTIVE: Abdomen is soft. Incision intact. Her ostomy is well perfused. ASSESSMENT AND PLAN: A 59-year-old female status post low anterior with end colostomy. Will continue gradually advance her diet as tolerated. I have encouraged to be out of bed and ambulating. She is completing a course of antibiotics for a urinary tract infection. She is on a proton pump inhibitor and Lovenox. cc: Vicki Schmidt MD
[2019-09-12] MEDS: ZOSYN 3.375 GM in NS 50 ML IV SCH ×4 (01:33→21:30)
[2019-09-12] MEDS: NS 1,000 ML IV SCH ×2 (01:33→13:26)
[2019-09-12] MEDS: REGLAN IV SCH ×4 (01:34→17:43)
[2019-09-12] MEDS: NEXIUM IV SCH ×2 (08:18→21:30)
[2019-09-12] MEDS: PERIDEX MT SCH ×2 (08:18→21:29)
[2019-09-12] MEDS: MAG-OX PO SCH (08:18)
[2019-09-12] MEDS: LOVENOX SUBQ SCH (08:18)
[2019-09-12] MEDS: SODIUM CHLORIDE 0.9% INJ SCH ×2 (08:18→21:30)
[2019-09-12] MEDS: MORPHINE IV PRN ×2 (10:07→15:29)
[2019-09-12] MEDS: LASIX PO SCH (16:25)
--- NOTE | 2019-09-12 18:00 | GENERAL SURGERY PROGRESS NOTE ---
DATE: 09/12/2019 SUBJECTIVE: She is doing well. She had stool per her ostomy. Her abdomen is soft. No nausea. She is hungry. She does note some diffuse swelling. OBJECTIVE: On exam, her ostomy is pink and viable with air in the bag. Abdomen is soft. ASSESSMENT AND PLAN: A 59-year-old female status post low anterior resection with end colostomy. We will advance her diet to soft and I stopped her IV fluids. Plan for maybe home tomorrow. cc: Vicki Schmidt MD
[2019-09-13] MEDS: REGLAN IV SCH ×2 (01:12→06:06)
[2019-09-13] MEDS: ZOSYN 3.375 GM in NS 50 ML IV SCH ×2 (01:12→09:12)
--- NOTE | 2019-09-13 01:19 | PROGRESS NOTE ---
DATE: 09/12/2019 SUBJECTIVE: Patient has no major complaints. OBJECTIVE: Vital signs: Stable. No fevers. Cardiovascular: Regular rate and rhythm. Pulmonary: Bilateral breath sounds clear to auscultation. Gastrointestinal: Soft, nontender, nondistended. LABORATORY DATA: White count 7, hemoglobin and hematocrit 11 and 34, platelets 489,000. Electrolytes are okay. Sodium is 135, but stable. PROBLEM LIST: Colon cancer status post colostomy. PLAN: Will be to continue to follow. We will continue to treat. Monitor. Really will decide on discharge soon, but anticipate discharge tomorrow if stabilizes. cc: Kervin Winston MD
[2019-09-13] MEDS: MORPHINE IV PRN ×2 (06:06→13:03)
[2019-09-13] MEDS ORDERED: PRILOSEC PO SCH (07:00)
[2019-09-13] MEDS: PERIDEX MT SCH (09:12)
[2019-09-13] MEDS: LOVENOX SUBQ SCH (09:13)
[2019-09-13] MEDS: MAG-OX PO SCH (09:13)
[2019-09-13] MEDS: LASIX PO SCH (09:13)
[2019-09-13 11:56] VITALS: BP 122/70
[2019-09-13] MEDS: PHENERGAN IV PRN (13:03)
--- NOTE | 2019-09-13 21:00 | DISCHARGE SUMMARY ---
ADMISSION DATE: 09/03/2019 DISCHARGE DATE: 09/13/2019 DISCHARGE DIAGNOSES: Metastatic colon cancer status post resection and colostomy. HOSPITAL COURSE: Ms. Coe is a 59-year-old female who was diagnosed as having colon cancer and was admitted to the hospital for resection of the colon cancer. She already had resection done and has had colostomy. Her hospital course has been uneventful and she has been doing well. Since her condition has improved, we are going to be discharging her time today. DISCHARGE MEDICATIONS: 1. Adderall 30 mg orally twice daily. 2. [place] 10 mg 3 to 4 times a day as needed for pain. 3. Omeprazole 40 mg orally once daily. 4. Metoclopramide 10 mg 3 times a day 30 minutes prior to meals. FOLLOW-UP INSTRUCTIONS: She will follow up with Dr. Moss 1 week. Follow up with Dr. Rogerio Schmidt in 2 to 5 days. She will also follow up with her PCP, Dr. Sebastian in approximately 1 to 2 weeks. CONDITION: Stable. DISPOSITION: Home. cc: Lulu Delatorre MD
== END 2019-09-13 14:56 | disposition home health service (06) | DRG 329 ==
LOC: SUATTDRO 11:23 → DIRADM 11:23 → EDIPHOLD 12:35 → 4N 17:01
PROVIDERS: ATTEND Internal Medicine
PROC: GE.COLS (2019-09-04 07:01)

== ENCOUNTER 2019-09-16 11:54 | Inpatient (IN) ==
[2019-09-16 13:53] LABS: BASO# 0.03 X1000 (0.0-0.2); BASO% 0.2 % (0.0-0.8); EOS# 0.05 X1000 (0.0-0.7); EOS% 0.3 % (0.0-10.0); HEMATOCRIT 37.6 % (37.0-47.0); HEMOGLOBIN 12.3 g/dL (12.0-16.0); IMM GRAN# 0.06 X1000 (0.0-0.04); IMM GRAN% 0.4 % (0.0-0.5); LYMPH# 1.82 X1000 (1.2-3.4); LYMPH% 11.7 % (20.5-51.1); MCH 31.1 PG (27-31); MCHC 32.7 g/dL (33-37); MCV 94.9 FL (81-99); MONO# 1.04 X1000 (0.11-0.59); MONO% 6.7 % (1.7-9.3); MPV 9.7 FL (7.4-10.4); NEUT# 12.62 X1000 (1.4-6.5); NEUT% 80.7 % (42.2-75.2); PLT 667 X1000 (130-400); RBC 3.96 XMIL (4.2-5.4); RDW 16.6 % (11.5-14.5); WBC 15.62 X1000 (4.8-10.8)
[2019-09-16 14:01] LABS: INR 0.99; PROTIME 13.1 Seconds (11.0-16.0)
[2019-09-16 14:02] LABS: PTT 30.3 Seconds (22.3-41.8)
--- NOTE | 2019-09-16 14:06 | Diag Imaging Result Doc PS360 ---
EXAM: CHEST-1 VIEW HISTORY: sepsis protocol TECHNIQUE: Chest single view COMPARISON: 09/03/2019 FINDINGS: Poor inspiratory effort. There is basilar atelectasis with tiny effusions. No cardiomegaly. No pulmonary edema. No consolidation. IMPRESSION: Basilar atelectasis with tiny effusions Electronically signed by Jay Au 09/16/2019 2:04 PM
[2019-09-16 14:11] LABS: URINE SOURCE CATH
--- NOTE | 2019-09-16 14:16 | EKG Report ---
Test Performed on : 09/16/2019 2:06:46 PM Test Reason : abd distention Blood Pressure : / mmHG Vent. Rate : 108 BPM Atrial Rate : 108 BPM P-R Int : 124 ms QRS Dur : 070 ms QT Int : 342 ms P-R-T Axes : 072 051 078 degrees QTc Int : 458 ms Sinus tachycardia. Nonspecific ST and T wave abnormality Abnormal ECG When compared with ECG of 03-SEP-2019 15:08, ST now depressed in Anterior leads Unconfirmed Result
[2019-09-16 14:17] LABS: AGAP 13; ALB/GLOB RATIO 1.2; ALBUMIN 3.7 g/dL (3.5-5.0); ALKALINE PHOSPHATASE 95 U/L (32-104); BUN 14 mg/dL (8-22); CALCIUM 8.8 mg/dL (8.8-10.2); CHLORIDE 91 mmol/L (98-107); COSMO 271; CREATININE 0.4 mg/dL (0.5-0.9); ESTIMATED GFR > 60; GLUCOSE 78 mg/dL (70-104); GOT 28 U/L (10-30); GPT 13 U/L (10-36); POTASSIUM 2.9 mmol/L (3.5-5.1); SODIUM 136 mmol/L (136-145); TCO2 32 mmol/L (25-35); TOTAL BILIRUBIN 0.56 mg/dL (0.20-1.00); TOTAL PROTEIN 6.7 g/dL (6.3-8.3)
[2019-09-16 14:33] LABS: BILIRUBIN URINE SMALL (NEGATIVE); BLOOD URINE NEGATIVE (NEGATIVE); COLOR YELLOW; GLUCOSE URINE NEGATIVE (NEGATIVE); KETONE URINE 40 mg/dL (NEGATIVE); LEUKOCYTES URINE NEGATIVE (NEGATIVE); NITRITE URINE NEGATIVE (NEGATIVE); PROTEIN URINE 50 mg/dL (NEGATIVE); TURBIDITY URINE HAZY (CLEAR); UR EPITHELIAL CELLS <10 /HPF (<10); URINE BACTERIA NEGATIVE /HPF; URINE WBC <10 /HPF (<10); UROBILINOGEN URINE 2 mg/dL (NORMAL)
[2019-09-16 14:45] LABS: URINE CASTS NONE SEEN; URINE CRYSTALS CA OXALATE PRESENT; URINE YEAST NONE SEEN
[2019-09-16] MEDS ORDERED: DILAUDID IV ONE (15:23)
[2019-09-16] MEDS ORDERED: NS 1,000 ML IV ONE (15:23)
[2019-09-16] MEDS ORDERED: ZOFRAN IV ONE (15:23)
--- NOTE | 2019-09-16 15:38 | Diag Imaging Result Doc PS360 ---
EXAM: CT ABD/PELVIS W/IV CONT ONLY 09/16/2019 HISTORY: abd distention/obstruction TECHNIQUE: This exam was performed using automated exposure control, adjustment of mA or kV according to patient size, and/or use of iterative reconstruction technique. COMMENT: The current examination is compared with the previous study of 08/20/2019 and that of 06/17/2019. There are bilateral pleural effusions which were not previously present and atelectasis versus pneumonia is present in both lower lobes on the right middle lobe. Compared to the previous examination, which was performed without contrast the hepatic metastatic lesions which were evident at the time the previous study are again noted. The most posterior medial in the right hepatic lobe measures almost 5 cm in AP dimension and has probably not changed significantly in size since the previous study. The lesion near the [place] hepatis in the right lobe measures 4.4 cm in anterior posterior dimension compared to 4.4 cm previously. These lesions were smaller on 06/17/2019. The spleen, kidneys, adrenal glands and pancreas are stable in appearance. There is pneumoperitoneum. There is gas in the anterior subcutaneous fat. The stomach is markedly distended. There is distention of the small bowel with the exception of the most distal small bowel. There is a descending colostomy. The transition point in the small bowel appears to be just below the level of the colostomy on the left side of the abdomen and may be related to an internal hernia or adhesion. The appendix is normal in appearance. There is extensive anasarca in the subcutaneous fat. Pelvis: There is a fairly large amount of free fluid in the pelvis with some enhancement of the peritoneal surfaces in the cul-de-sac which may be indicative of peritonitis. There is a bone island in the ischium on the right which has not changed since 06/17/2019. Otherwise the regional skeleton is stable in appearance. IMPRESSION: 1. Pneumoperitoneum. 2. Small bowel obstruction. 3. Metastatic disease in the liver is stable or slightly improved since previous studies. 4. Ascites and anasarca. The possibility of peritonitis cannot be excluded. The findings were discussed with Brent Márquez MD at 09/16/2019 3:36 PM. Electronically signed by Onesimo Mckeon 09/16/2019 3:36 PM
[2019-09-16 15:46] LABS: CK INDEX 0.9 (0.0-2.5); CK-MB 1.85 ng/mL (0.0-5.0)
[2019-09-16] MEDS ORDERED: ATIVAN IV ONE (15:55)
[2019-09-16] MEDS ORDERED: ZOFRAN IV PRN (17:25)
--- NOTE | 2019-09-16 17:30 | Diag Imaging Result Doc PS360 ---
EXAM: CHEST/ABD TUBE PLACEMENT 09/16/2019 HISTORY: NGT verify placement TECHNIQUE: AP upright portable at 1655 COMMENT: There is pneumoperitoneum. There is an NG tube in the stomach. The stomach is markedly distended. There is atelectasis in both lung bases as there was on 09/16/2019 at 1359. IMPRESSION: NG tube in the stomach. Electronically signed by Onesimo Mckeon 09/16/2019 5:27 PM
[2019-09-16] MEDS: POTASSIUM CHLORIDE 40 MEQ in NS 250 ML IV SCH (18:40)
[2019-09-16] MEDS: NS 1,000 ML IV SCH (18:40)
--- NOTE | 2019-09-16 19:47 | HISTORY AND PHYSICAL ---
PRIMARY CARE PHYSICIAN: Dr. Sebastian. SURGEON: Dr. Rogerio Schmidt. CHIEF COMPLAINT: Generalized abdominal pain and nausea, vomiting since having her colostomy replaced 2 weeks ago. HISTORY OF PRESENTING ILLNESS: This is a 59-year-old female who presents to [facility] with complaints of generalized abdominal pain and nausea, vomiting. States that she has had abdominal pain since having her colostomy replaced 2 weeks ago. She has had some small amount of stool in her colostomy since it was replaced. She has a history of liver and stomach cancer. Her workup showed a CT of the abdomen and pelvis with a pneumoperitoneum and a small bowel obstruction, ascites and anasarca with the possibility of peritonitis could not be excluded. Chest x-ray showed basilar atelectasis with tiny effusions. White blood cell count was 15.62, potassium was 2.9, plasma lactate was 1.3 so she will be admitted for further evaluation and treatment. PAST MEDICAL HISTORY: Of liver and stomach cancer, ADHD and GERD. PAST SURGICAL HISTORY: Of tonsillectomy, colon resection with colostomy placement and the colostomy was replaced 2 weeks ago. FAMILY HISTORY: Reviewed and noncontributory. SOCIAL HISTORY: She currently lives alone. Smokes 4 cigarettes daily. Denies any alcohol or illicit drug use. ALLERGIES: She has no known drug allergies. HOME MEDICATIONS: Will all be held. She takes Adderall 30 mg p.o. b.i.d., [place] 10 one p.o. q.6 hours p.r.n., Reglan liquid 10 mg p.o. t.i.d. a.c. and Prilosec 40 mg p.o. daily. LABORATORY DATA: Showed a white blood cell count of 15.62, hemoglobin 12.3, hematocrit 37.6, platelets 667,000, PT and INR of 13.1 and 0.99. Sodium 136, potassium 2.9, chloride 91, CO2 32, BUN 14, creatinine 0.4, glucose 78, creatine kinase of 198, CK-MB of 1.85, troponin less than 0.010 with a plasma lactate of 1.3. Urinalysis was negative. CT of abdomen and pelvis showed a pneumoperitoneum, small bowel obstruction, metastatic disease in the liver stable or slightly improved since previous study, ascites and anasarca with the possibility of peritonitis could not be excluded. Chest x-ray showed basilar atelectasis with tiny effusions. EKG showed sinus tachycardia at 108. REVIEW OF SYSTEMS: She denied any fever, chills, blurred vision, dizziness, chest pain, coughing, shortness of breath. She was positive for generalized abdominal pain, nausea, vomiting. Denied any diarrhea, no burning or hurting with urination. PHYSICAL EXAMINATION: On arrival she had a temperature of 98.6 degrees, pulse 108, respirations 22, blood pressure 120/77, saturating 98% on room air. GENERAL: This is a 59-year-old female who is sitting up in the bed and answers questions appropriately. HEENT: Normocephalic, atraumatic. Normal ENT inspection. Patient does have a NG tube to her right naris. Oropharynx and nares are clear. Pupils are equal, round, reactive to light, accommodation. Extraocular movements are intact. NECK: Normal inspection, normal range of motion. LUNGS: Clear to auscultation bilaterally with equal lung expansion and chest wall movement. HEART: Regular rate and rhythm. No murmurs, rubs, or gallops. ABDOMEN: Was firm and distended. Tenderness to palpation throughout abdomen. Colostomy bag in place. Bowel sounds were present x4 quadrants. MUSCULOSKELETAL: She had 5/5 strength x4 extremities. NEUROLOGICAL: The cranial nerves 2-12 appear grossly intact. ASSESSMENT: 1. Small bowel obstruction. 2. Leukocytosis. 3. Hypokalemia. 4. Tobacco abuse. 5. stage IV colon cancer with liver metastases 6. pneumoperitoneum 7. possible sepsis 8. gerd PLAN: She will be admitted to surgical unit, placed on telemetry, held NPO, NG tube to intermittent suction, consult Surgery, normal saline at 125 mL an hour, potassium 40 mEq IV now and repeat in 8 hours, Dilaudid 1 mg IV q.3 hours p.r.n., SCDs for DVT prophylaxis and recheck CBC, BMP in the a.m. Further orders after seen by attending and by [employer] sales consultant. Dictated by JOSE Ayers for Alex Carrasco MD cc: JOSE Ayers Dr. Agree with the above, the following is my own face to face assessment. bowel sounds decreased but not entirely absent. abdominal slightly distended but nontender. ostomy with essentially no output. will treat sbo conservatively and monitor. Pneumoperitoneum hopefully from previous procedure but as it was 3 weeks ago and she also has significant leukocytosis, there is some concern for occult perforation. however, given little to no tenderness and hemodynamic stability will treat conservatively with antibiotics and monitor. will see what surgery thinks about it. CARA
--- NOTE | 2019-09-16 21:27 | GENERAL SURGERY CONSULTATION ---
DATE: 09/16/2019 CHIEF COMPLAINT: Abdominal distention and nausea. REASON FOR CONSULTATION: Small bowel obstruction. HISTORY OF PRESENT ILLNESS: This is a 59-year-old female with metastatic colon cancer. She underwent a low anterior with end-colostomy approximately a week and a half ago. Her postoperative course, she did develop an ileus, but this resolved, and she went home and was feeling well. Her ostomy was functioning normally, and she was changing her bag without difficulty, but over the course of the day today, she has developed increasing abdominal distention with some nausea and some vomiting and decreased ostomy output. She is admitted for further evaluation. CT scan was obtained that showed some residual air within the subcutaneous space and a very small amount of air intraabdominally, massive dilation of the small bowel and stomach consistent with bowel obstruction, possible transition point near her colostomy. She has small bilateral effusions and some nonspecific fluid in her pelvis. MEDICAL HISTORY: Tobacco abuse, history of pelvic inflammatory disease, chronic pain, opiate use, metastatic rectal cancer. SURGICAL HISTORY: She has had a laparoscopic hand-assisted low anterior resection with end colostomy and a tonsillectomy. SOCIAL HISTORY: She smokes a half-pack a day, currently but heavier in the past. Also smokes marijuana and other drugs. REVIEW OF SYSTEMS: A 10 point review of systems was negative other than what is mentioned in the HPI. FAMILY HISTORY: Reviewed and noncontributory. MEDICATIONS: She does take [place] chronically. OBJECTIVE: General: She is afebrile, pulse has been in the low 100s, blood pressure 123/74, oxygen saturation is 96%. General: She is a very frail-appearing female, cachectic. HEENT: There is no scleral icterus. Cardiovascular: Sinus tachycardia. Pulmonary: No increased work of breathing. Abdomen: Distended, but soft. There is no peritonitis. Incisions are intact. Ostomy pink, viable with some stool in the bag, but minimal air. Integument is warm, dry. No lower extremity edema on peripheral vascular. Neurologic: No gross deficits. DIAGNOSTIC STUDIES: White count 15, hematocrit 37, platelets 667,000. INR 0.99. Creatinine 0.4. Bilirubin, AST, ALT, and alkaline phosphatase are normal. Lactate is 1.3. Urinalysis is negative for nitrates and leukocytes. I reviewed her CT scan. ASSESSMENT AND PLAN: This is a 59-year-old female with bowel obstruction status post low anterior with end-colostomy. She has massive dilation in her stomach and small bowel. We will placed an NG tube now. Her electrolytes are also deranged with a low potassium. Magnesium is pending. I have recommended admission to the hospitalist service with hydration, correction of electrolytes. She will need peripheral nutrition given the fact that she was not eating very much before surgery and has not really taken a lot of adequate p.o. since. Otherwise, her abdomen is distended, but I do not see any signs of peritonitis. I suspect that the air is most likely residual postoperatively, and I do not note teresa peritonitis. We discussed the possibility of an operation. I have recommended nasogastric tube decompression with the patient. She understands all this and consents to it. We will follow her closely. cc: Vicki Schmidt MD
[2019-09-17] MEDS ORDERED: STERILE WATER INJ. INJ PRN (03:37)
[2019-09-17] MEDS ORDERED: GEODON IM PRN (03:37)
[2019-09-17 07:07] LABS: BASO# 0.04 X1000 (0.0-0.2); BASO% 0.3 % (0.0-0.8); EOS# 0.08 X1000 (0.0-0.7); EOS% 0.5 % (0.0-10.0); HEMOGLOBIN 9.5 g/dL (12.0-16.0); IMM GRAN# 0.04 X1000 (0.0-0.04); IMM GRAN% 0.3 % (0.0-0.5); LYMPH# 1.33 X1000 (1.2-3.4); LYMPH% 8.9 % (20.5-51.1); MCH 30.4 PG (27-31); MCHC 31.7 g/dL (33-37); MCV 96.2 FL (81-99); MONO# 1.48 X1000 (0.11-0.59); MONO% 9.9 % (1.7-9.3); MPV 9.6 FL (7.4-10.4); NEUT# 12.04 X1000 (1.4-6.5); NEUT% 80.1 % (42.2-75.2); PLT 513 X1000 (130-400); RBC 3.12 XMIL (4.2-5.4); RDW 16.6 % (11.5-14.5); WBC 15.01 X1000 (4.8-10.8)
[2019-09-17 07:28] LABS: AGAP 12; BUN 15 mg/dL (8-22); CALCIUM 7.7 mg/dL (8.8-10.2); CHLORIDE 97 mmol/L (98-107); COSMO 273; CREATININE 0.3 mg/dL (0.5-0.9); ESTIMATED GFR > 60; GLUCOSE 77 mg/dL (70-104); POTASSIUM 3.3 mmol/L (3.5-5.1); SODIUM 137 mmol/L (136-145); TCO2 28 mmol/L (25-35)
[2019-09-17] MEDS: DILAUDID IV PRN ×4 (09:43→23:33)
--- NOTE | 2019-09-17 09:55 | Diag Imaging Result Doc PS360 ---
CHEST/ABD TUBE PLACEMENT - 09/17/2019 INDICATION: confirm tube placement COMPARISON: 09/16/2019 FINDINGS: There is a nasogastric tube in good position in the stomach. IMPRESSION: Nasogastric tube in the stomach. Electronically signed by Marcelo Bethea 09/17/2019 9:53 AM
[2019-09-17] MEDS: POTASSIUM CHLORIDE 40 MEQ in NS 250 ML IV SCH (10:26)
[2019-09-17] MEDS: NS 1,000 ML IV SCH ×2 (10:27→16:28)
[2019-09-17] MEDS ORDERED: CHLORASEPTIC SPRAY MT PRN (14:17)
[2019-09-17] MEDS ORDERED: LIPOSYN 20% 250 ML IV SCH (17:30)
--- NOTE | 2019-09-17 17:46 | PROGRESS NOTE ---
DATE: 09/17/2019 SUBJECTIVE: The patient seems in better spirits. Apparently overnight she took out her NG tube. She was refusing any treatments. She got very upset but she did not want to be discharged so now NG tube has been replaced. She is amenable to treatment. I think she just got very upset with the whole situation complicated and unpleasant diagnosis. OBJECTIVE: Blood pressure 119/54, heart rate of 101, respiratory rate of 20, temperature 98.6 degrees. She has been afebrile, 100% on room air.Cardiovascular: Regular rate and rhythm. Pulmonary: Bilateral breath sounds clear to auscultation. GI: Soft, nontender, nondistended. Bowel sounds are positive. LABORATORY DATA: White count 15, hemoglobin and hematocrit 9 and 30, platelets 513,000. Potassium is 3.3. PROBLEM LIST: 1. Small bowel obstruction with recent colostomy due to colon cancer. However, she has good output. She has positive bowel sounds so I think whatever it is, is resolving. We will repeat plain films tomorrow CT and follow. Surgery has been consulted I believe Dr. Schmidt and he is recommending just monitoring. I do not think she has peritonitis either at least not clinically and we will probably start her on Clinimix because she has been malnourished and follow closely. She is hypokalemic. We will supplement and follow. 2. Metastatic colon cancer, aware of diagnosis. At this point she is not amenable to further treatment until her other issues are resolved. cc: Kervin Winston MD
[2019-09-17] MEDS: CLINIMIX E 4.25%-5% SOLUTION 1,000 ML IV SCH (20:17)
[2019-09-17] MEDS: LIPOSYN 20% 250 ML IV SCH (22:45)
[2019-09-18] MEDS: DILAUDID IV PRN ×6 (02:37→16:54)
[2019-09-18 07:13] LABS: BASO# 0.03 X1000 (0.0-0.2); BASO% 0.2 % (0.0-0.8); EOS# 0.09 X1000 (0.0-0.7); EOS% 0.7 % (0.0-10.0); HEMATOCRIT 32.6 % (37.0-47.0); HEMOGLOBIN 10.4 g/dL (12.0-16.0); IMM GRAN# 0.03 X1000 (0.0-0.04); IMM GRAN% 0.2 % (0.0-0.5); LYMPH# 1.89 X1000 (1.2-3.4); LYMPH% 14.3 % (20.5-51.1); MCH 31.7 PG (27-31); MCHC 31.9 g/dL (33-37); MCV 99.4 FL (81-99); MONO# 1.18 X1000 (0.11-0.59); MONO% 8.9 % (1.7-9.3); MPV 9.3 FL (7.4-10.4); NEUT% 75.7 % (42.2-75.2); PLT 480 X1000 (130-400); RBC 3.28 XMIL (4.2-5.4); RDW 16.9 % (11.5-14.5); WBC 13.22 X1000 (4.8-10.8)
[2019-09-18 08:30] LABS: AGAP 17; BUN 13 mg/dL (8-22); CALCIUM 7.8 mg/dL (8.8-10.2); CHLORIDE 97 mmol/L (98-107); COSMO 269; CREATININE 0.3 mg/dL (0.5-0.9); ESTIMATED GFR > 60; GLUCOSE 71 mg/dL (70-104); POTASSIUM 4.7 mmol/L (3.5-5.1); SODIUM 135 mmol/L (136-145); TCO2 21 mmol/L (25-35)
[2019-09-18] MEDS ORDERED: SODIUM CHLORIDE 0.9% INJ SCH (09:00)
[2019-09-18] MEDS ORDERED: NEXIUM IV SCH (09:00)
--- NOTE | 2019-09-18 09:44 | GENERAL SURGERY PROGRESS NOTE ---
DATE: 09/18/2019 SUBJECTIVE: She had a large amount of colostomy output, she says that after passing a large particulate food matter, and her NG tube output is decreased. She feels much better. She continues to pass flatus per colostomy. OBJECTIVE: Her abdomen is much less distended and soft and nontender. No fevers. Heart rate now in the 90s. Blood pressure 120/74. Her incision intact. Ostomy is pink, viable. LABORATORY DATA: I reviewed her labs, this morning her white count is 13, her potassium is up to 4.7. Creatinine remains normal at 0.3. ASSESSMENT AND PLAN: A 59-year-old female with resolving ileus, status post low anterior resection. We will keep her NG tube at least through the day today. If she continues to have reliable ostomy output, we will remove her NG tube. Otherwise, would continue correct her electrolytes. I started her on prophylactic Lovenox and will also start IV PPI. She is on peripheral nutrition. cc: Vicki Schmidt MD
--- NOTE | 2019-09-18 09:44 | GENERAL SURGERY PROGRESS NOTE ---
DATE: 09/17/2019 SUBJECTIVE: NG tube output has been high, greater than 2 L. She feels much better. She has had a small amount of ostomy output. Her abdomen is much less distended and soft. I reviewed her labs. On the , her white count remained elevated at 15, her hematocrit was down to 30 with her hydration. Potassium is up to 3.3, creatinine 0.3. ASSESSMENT AND PLAN: A 59-year-old female with a bowel obstruction versus ileus, status post low anterior resection with end-colostomy for obstructing colon cancer. We will continue nasogastric tube decompression. Encourage her to be out of bed. Correcting her electrolytes and we started her on peripheral nutrition. cc: Vicki Schmidt MD
--- NOTE | 2019-09-18 12:05 | PROVIDER DOCUMENTATION ---
This chart was entered by Stephanie Rodriguez Scribe, acting as scribe for Brent Márquez MD. HPI-Abdominal Pain/GI Problem - General Chief Complaint: Abdominal Pain Stated Complaint: N/V, ABD Pain Time Seen by Provider: 09/16/19 12:46 Source: patient Allergies/Adverse Reactions: Patient Allergies Allergy/AdvReac Type Severity Reaction Status Date / Time No Known Allergies Allergy Verified 09/16/19 13:21 Home Medications: Home Medication List Medication Instructions Recorded Confirmed Last Taken Type Dextroamphetamine/Amphetamine 30 mg PO BID 07/22/19 09/16/19 09/03/19 06:00 History [Adderall 30 mg Tablet] Hydrocodone/Acetaminophen [[place] 1 ea PO Q6H PRN PRN #12 tab 09/13/19 09/16/19 Unknown Rx 10-325 Tablet] Metoclopramide [Reglan Liquid] 10 mg PO TID AC #90 udc 09/13/19 09/16/19 Unknown Rx Omeprazole [Prilosec] 40 mg PO DAILY@0700 #30 cap 09/13/19 09/16/19 Unknown Rx - History of Present Illness-ABD Nature of Presenting Problems: 59 yowf c/o generalized abd pain and distention w/ n/v since last night. pt had recently colostomy bag replaced 2 weeks ago and was d/c from hospital on monday. pt has hx of liver and stomach cancer. pt sts Dr. chew did sx. Dr. Sebastian is pt's pcp. pt pain is 10/10. denies fever, cp and urinary symptoms. pt unsure last BM. Abdominal Pain Onset Location: reports: generalized abdomen Pain Radiation: reports: no radiation Severity in ED: reports: mild Onset/Duration: reports: last night Timing: reports: still present Activities at Onset: reports: none Associated Symptoms: reports: nausea, vomiting. denies: diarrhea, fever/chills, genitourinary problems Last BM: unsure Dark Stools Present?: reports: none noticed Rectal Bleeding: reports: none Rectal Pain: reports: none Review of Systems - Adult - REVIEW OF SYSTEMS - ADULT Constitutional: reports: no symptoms reported. denies: chills, fever, night sweats Eyes: reports: no symptoms reported Ears, Nose, Mouth & Throat: reports: no symptoms reported Cardiovascular: reports: no symptoms reported. denies: chest pain, orthopnea, palpitations Respiratory: reports: no symptoms reported. denies: dyspnea on exertion, shortness of breath, wheezing Gastrointestinal: reports: see HPI, abdominal pain, nausea, vomiting, other (distention). denies: diarrhea, difficulty swallowing, frequent heartburn Genitourinary: reports: no symptoms reported. denies: dysuria, discharge, hematuria Musculoskeletal: reports: no symptoms reported Integumentary: reports: no symptoms reported Neurological: reports: no symptoms reported Psychiatric: reports: no symptoms reported Endocrine: reports: no symptoms reported Hematologic/Lymphatic: reports: no symptoms reported Allergic/Immunologic: reports: no symptoms reported All Other Systems: Reviewed and Negative Past History - Adult - PAST MEDICAL HISTORY-ADULT Review of Records: reports: Old Records Reviewed, Nursing Assessment Review, Medications Reviewed, Social history reviewed & non-contributory. Major Childhood Illnesses: reports: denies history Cardiovascular: reports: denies history Respiratory: reports: denies history Gastrointestinal: reports: cancer (liver and stomach) Obstetrical/Gynecological: reports: denies history Genitourinary: reports: denies history Musculoskeletal: reports: denies history Neurological: reports: denies history Endocrine/Immune: reports: denies history Other Conditions: reports: denies history - PRIOR SURGERIES/PROCEDURES Surgical/Procedure History: reports: reviewed, not pertinent, tonsillectomy, other - IMMUNIZATION STATUS Childhood Immunizations: See Nurse Assessment Flu Vaccine: See Nurse Assessment - FAMILY HISTORY Family History: reviewed, not pertinent - SOCIAL HISTORY Smoking: cigarettes, less than 1 pack/day Provider spent 3-5 mins advising pt. on dangers of tobacco.: Discussed manners to quit use, and f/u contacts for add'l counseling. Substance Use: none/never Physical Exam-General - PHYSICAL EXAM-ADULT Initial Vital Signs Reviewed: Yes - CONSTITUTIONAL General Appearance: alert, no apparent distress, thin. negative: anxious, lethargic, combative - EYES Eyes: PERRL/EOMI, pink conjunctivae - HEAD, EARS, NOSE, MOUTH & THROAT HENMT: normocephalic/atraumatic, moist mucous membranes, normal ENT inspection - NECK Neck: non-tender, full range of motion, supple, normal inspection - RESPIRATORY Respiratory: chest non-tender, lungs clear, normal breath sounds - CARDIOVASCULAR Cardiovascular: normal peripheral pulses, no edema, no gallop, no JVD, no murmur , tachycardia. negative: regular rate, rhythm, JVD, bradycardia - GASTROINTESTINAL (ABDOMEN) Abdominal Exam: normal bowel sounds, no organomegaly, no pulsatile mass, distended, tenderness (to palp general diffuse abd), other (colostomy bag in place.). negative: non tender, soft, guarding, rebound - LYMPHATIC Lymphatic: no adenopathy - MUSCULOSKELETAL Back Exam: normal inspection, no CVA tenderness, no vertebral tenderness Extremity: normal range of motion, non-tender, normal inspection Peripheral Pulses: radial (R): 2+, radial (L): 2+ - SKIN Integumentary: normal color, normal turgor, warm/dry - NEUROLOGIC Neurologic: grossly normal, no motor/sensory deficits - PSYCHIATRIC Psych/Mental Status: normal mood/affect, normal thought content, normal thought process, oriented x 3 Progress - PLAN OF CARE/RESULTS Progress/Plan/Lab Results: Vital Signs - 8 hr 09/16/19 12:50 Temperature 98.6 F Pulse Rate 108 H Respiratory Rate 22 Blood Pressure 120/77 O2 Sat by Pulse Oximetry 98 Orders Category Date Time Status Cardiac Monitoring DIRECTED Care 09/16/19 13:06 Active Saline Loc NOW Care 09/16/19 13:[address] ABD/PELVIS W/IV CONT ONLY [CT] Stat Exams 09/16/19 13:07 Ordered CBC WITH ELECTRONIC DIFF [HEME] Stat Lab 09/16/19 13:06 Uncollected COMPREHENSIVE METABOLIC PANEL [CHEM] Stat Lab 09/16/19 13:06 Uncollected LACTATE, PLASMA [CHEM] Stat Lab 09/16/19 13:07 Uncollected PROTIME WITH INR [COAG] Stat Lab 09/16/19 13:07 Uncollected PTT [COAG] Stat Lab 09/16/19 13:07 Uncollected TROPONIN T Stat Lab 09/16/19 13:07 Uncollected URINALYSIS W/POSS RFLX CULT [URINALYSIS] Stat Lab 09/16/19 13:07 Uncollected EKG [EKG] Stat Ther 09/16/19 13:06 Ordered Result Diagrams: 09/18/19 06:30 09/18/19 06:30 - REASSESSMENT Reassessment #1 Time Reassessed: 13:32 Status: other (pt has an active DNR, no paperwork with her) Reassessment #2 Time Reassessed: 16:16 (DR CHEW HAS EXAMINED THE PT IN ER) - EKG 1 Time of EKG reading by physician:: 14:10 EKG Read and Signed by:: Brent Márquez EKG Interpretation (*Must complete 3 of following elements*): Abnormal Rate: 108 Rhythm: ST [facility]: normal QRS: normal ND Interval: normal ST Wave: non-specific ST changes (nonspecific ST and T wave abnormality) - XRAY 1 XRAY Study: Chest Impression: Abnormal, See EMR Report (Signed EXAM: CHEST-1 VIEW HISTORY: sepsis protocol TECHNIQUE: Chest single view COMPARISON: 09/03/2019 FINDINGS: Poor inspiratory effort. There is basilar atelectasis with tiny effusions. No cardiomegaly. No pulmonary edema. No consolidation. IMPRESSION: Basilar atelectasis with tiny effusions Electronically signed by Jay Au 09/16/2019 2:04 PM) - CT/MRI 1 CT Study: Abdomen, Pelvis Impression: Abnormal, See EMR Report (EXAM: CT ABD/PELVIS W/IV CONT ONLY 09/16/2019 HISTORY: abd distention/obstruction TECHNIQUE: This exam was performed using automated exposure control, adjustment of mA or kV according to patient size, and/or use of iterative reconstruction technique. COMMENT: The current examination is compared with the previous study of 08/20/2019 and that of 06/17/2019. There are bilateral pleural effusions which were not previously present and atelectasis versus pneumonia is present in both lower lobes on the right middle lobe. Compared to the previous examination, which was performed without contrast the hepatic metastatic lesions which were evident at the time the previous study are again noted. The most posterior medial in the right hepatic lobe measures almost 5 cm in AP dimension and has probably not changed significantly in size since the previous study. The lesion near the [place] hepatis in the right lobe measures 4.4 cm in anterior posterior dimension compared to 4.4 cm previously. These lesions were smaller on 06/17/2019. The spleen, kidneys, adrenal glands and pancreas are stable in appearance. There is pneumoperitoneum. There is gas in the anterior subcutaneous fat. The stomach is markedly distended. There is distention of the small bowel with the exception of the most distal small bowel. There is a descending colostomy. The transition point in the small bowel appears to be just below the level of the colostomy on the left side of the abdomen and may be related to an internal hernia or adhesion. The appendix is normal in appearance. There is extensive anasarca in the subcutaneous fat. Pelvis: There is a fairly large amount of free fluid in the pelvis with some enhancement of the peritoneal surfaces in the cul-de-sac which may be indicative of peritonitis. There is a bone island in the ischium on the right which has not changed since 06/17/2019. Otherwise the regional skeleton is stable in appearance. IMPRESSION: 1. Pneumoperitoneum. 2. Small bowel obstruction. 3. Metastatic disease in the liver is stable or slightly improved since previous studies. 4. Ascites and anasarca. The possibility of peritonitis cannot be excluded. The findings were discussed with Brent Márquez MD at 09/16/2019 3:36 PM. Electronically signed by Onesimo Mckeon 09/16/2019 3:36 PM) Comparison with other Films: changes noted - CONSULTS/PCP/HOSPITALIST Notification #1 *Consult/PCP/Hospitalist*: Dr. Chew/surgery Time Discussed: 15:30 Consult Disposition: other (needs to be admitted to hospitalist and needs new G- tube.) #2 Consult: Dr. Chew/surgery Time Discussed: 15:55 Consult Disposition: other (Dr. chew is aware that pt has trace amt free air) #3 Consult: Kamla/Hospitalist Time Discussed: 16:05 Consult Disposition: Admit (to Dr. aCrrasco) Departure - Departure Date of Disposition Decision: 09/16/19 Time of Disposition Decision: 15:59 DIAGNOSIS: Status post laparoscopic colectomy, Colostomy in place, SBO (small bowel obstruction), Abdominal distention Abdominal pain Qualifiers: Abdominal location: generalized Qualified Code(s): R10.84 - Generalized abdominal pain Disposition: ADMITTED INPATIENT 09 Certified Medical Emergency: Emergent Condition: Fair - Critical Care Note This patient required my direct & personal management of CC.: No Attestation - Physician/ PUSHPA Attestation Patient care was provided by Advanced Practice Provider:: No The physician spent face to face time with patient:: Yes Advanced Practice Provider documentation review:: Supervising physician onsite and consulted in the evaluation and care of this patient. The physician did have a face to face encounter with the patient. This chart was documented by the indicated scribe, (Stephanie Rodriguez, Lion) and accurately reflects the services I performed and decisions made by me, Daniel Márquez MD, as attested by the provider's signature.
[2019-09-18] MEDS: LOVENOX SUBQ SCH (14:03)
[2019-09-18] MEDS: CLINIMIX E 4.25%-5% SOLUTION 1,000 ML IV SCH ×2 (14:04→23:54)
[2019-09-18] MEDS: PROTONIX IV SCH (16:57)
[2019-09-18] MEDS: ATIVAN IV PRN ×2 (18:38→22:40)
[2019-09-18] MEDS: LIPOSYN 20% 250 ML IV SCH (18:45)
--- NOTE | 2019-09-18 19:39 | PROGRESS NOTE ---
DATE: 09/18/2019 SUBJECTIVE: Patient has no major complaints. OBJECTIVE: Blood pressure is 139/88, heart rate of 100, respiratory rate of 16, temperature 98.6 degrees, 100% on room air.Cardiovascular: Regular rate and rhythm. Pulmonary: Bilateral breath sounds clear to auscultation. Gastrointestinal: Soft, nontender, nondistended. Bowel sounds are positive. LABORATORY DATA: White count 13, hemoglobin 10, hematocrit 32, platelets 480,000. Rest of the electrolytes look okay. PROBLEM LIST: 1. Small bowel obstruction, colostomy. She did have a decent bowel movement yesterday when I saw her, but she has not had a bowel movement since then, so we will continue to follow. She is on NG, and Dr. Schmidt will likely remove her NG tube tomorrow and follow closely. We will continue nutritional supplement and follow. Disposition pending clinical status. 2. Metastatic colon cancer. She is not amenable to treatment at this point until she stabilizes a bit further. She is very tearful and wants to go home, but I explained that we would at least need to watch her until the NG tube comes out or else she will be right back to where she was. cc: Kervin Winston MD
[2019-09-19 07:14] LABS: BASO# 0.01 X1000 (0.0-0.2); BASO% 0.1 % (0.0-0.8); EOS# 0.06 X1000 (0.0-0.7); EOS% 0.5 % (0.0-10.0); HEMATOCRIT 26.7 % (37.0-47.0); HEMOGLOBIN 8.5 g/dL (12.0-16.0); IMM GRAN# 0.03 X1000 (0.0-0.04); IMM GRAN% 0.3 % (0.0-0.5); LYMPH# 1.45 X1000 (1.2-3.4); LYMPH% 12.1 % (20.5-51.1); MCH 30.5 PG (27-31); MCHC 31.8 g/dL (33-37); MCV 95.7 FL (81-99); MONO# 0.87 X1000 (0.11-0.59); MONO% 7.3 % (1.7-9.3); MPV 9.3 FL (7.4-10.4); NEUT# 9.55 X1000 (1.4-6.5); NEUT% 79.7 % (42.2-75.2); PLT 448 X1000 (130-400); RBC 2.79 XMIL (4.2-5.4); RDW 15.7 % (11.5-14.5); WBC 11.97 X1000 (4.8-10.8)
[2019-09-19 09:48] LABS: AGAP 9; BUN 13 mg/dL (8-22); CALCIUM 7.8 mg/dL (8.8-10.2); CHLORIDE 100 mmol/L (98-107); COSMO 270; CREATININE 0.3 mg/dL (0.5-0.9); ESTIMATED GFR > 60; GLUCOSE 133 mg/dL (70-104); POTASSIUM 3.9 mmol/L (3.5-5.1); SODIUM 134 mmol/L (136-145); TCO2 25 mmol/L (25-35)
[2019-09-19] MEDS: CLINIMIX E 4.25%-5% SOLUTION 1,000 ML IV SCH ×2 (11:56→21:41)
[2019-09-19] MEDS: PROTONIX IV SCH (16:03)
[2019-09-19] MEDS: SODIUM CHLORIDE 0.9% INJ SCH (16:03)
[2019-09-19] MEDS: DILAUDID IV PRN ×2 (18:17→21:39)
[2019-09-19] MEDS: LIPOSYN 20% 250 ML IV SCH (18:38)
--- NOTE | 2019-09-19 21:14 | PROGRESS NOTE ---
DATE: 09/19/2019 SUBJECTIVE: The patient has no major complaints. She looks better. I think her NG tube was removed yesterday, I think it was removed, but she has had good output from her ostomy. She feels better today. OBJECTIVE: Vital Signs: Blood pressure is 120/70, heart rate of 96, respiratory rate 18, temperature 99.1 degrees. Cardiovascular: Regular rate and rhythm. Pulmonary: Bilateral breath sounds, clear to auscultation. GI: Soft, nontender, nondistended. Bowel sounds are positive. LABORATORY DATA: White count 11, hemoglobin and hematocrit 8 and 26, platelets 448,000. Electrolytes looked okay. PROBLEM LIST: 1. Small-bowel obstruction, recent colostomy for colon cancer. I am going to go ahead and advance her diet because she has had ostomy output. Repeat plain films tomorrow. Dr. Schmidt will re-evaluate her. 2. Metastatic colon cancer. Aware of diagnosis. Continue treatments when she leaves. DISPOSITION: Hopefully can go home in the next day or 2 pending her clinical status. cc: Kervin Winston MD
[2019-09-19] MEDS: LOVENOX SUBQ SCH (21:40)
--- NOTE | 2019-09-20 01:37 | GENERAL SURGERY PROGRESS NOTE ---
DATE: 09/19/2019 SUBJECTIVE: NG tube came out. She continues to have ostomy output. Low-grade tachycardia intermittently. Blood pressure has been okay. Oxygen saturation high 90s on room air. OBJECTIVE: Vital signs: Blood pressure has been okay. Oxygen saturation high 90s on room air. General: She is alert. Abdomen: Soft. Ostomy is pink, viable. Stool in the bag. Psychologic: Her mental status is a little more depressed today. LABS: I reviewed her labs. White count 11, hematocrit 26. Creatinine 0.3. ASSESSMENT AND PLAN: A 59-year-old female readmitted with bowel obstruction following a colon resection for obstructing cancer. We will continue to optimize her electrolytes, give her clear liquids. Encourage her to go slow. cc: Vicki Schmidt MD
[2019-09-20] MEDS: CLINIMIX E 4.25%-5% SOLUTION 1,000 ML IV SCH ×3 (05:06→16:38)
[2019-09-20] MEDS: DILAUDID IV PRN (06:26)
[2019-09-20 07:47] LABS: BASO# 0.01 X1000 (0.0-0.2); BASO% 0.1 % (0.0-0.8); EOS# 0.08 X1000 (0.0-0.7); HEMATOCRIT 25.1 % (37.0-47.0); HEMOGLOBIN 7.9 g/dL (12.0-16.0); IMM GRAN# 0.04 X1000 (0.0-0.04); IMM GRAN% 0.5 % (0.0-0.5); LYMPH# 1.66 X1000 (1.2-3.4); LYMPH% 21.6 % (20.5-51.1); MCH 30.2 PG (27-31); MCHC 31.5 g/dL (33-37); MCV 95.8 FL (81-99); MONO# 0.76 X1000 (0.11-0.59); MONO% 9.9 % (1.7-9.3); MPV 9.4 FL (7.4-10.4); NEUT# 5.15 X1000 (1.4-6.5); NEUT% 66.9 % (42.2-75.2); PLT 436 X1000 (130-400); RBC 2.62 XMIL (4.2-5.4); RDW 15.7 % (11.5-14.5)
[2019-09-20 07:57] LABS: AGAP 9; BUN 14 mg/dL (8-22); CALCIUM 7.5 mg/dL (8.8-10.2); CHLORIDE 99 mmol/L (98-107); COSMO 265; CREATININE 0.2 mg/dL (0.5-0.9); ESTIMATED GFR > 60; GLUCOSE 96 mg/dL (70-104); POTASSIUM 4.6 mmol/L (3.5-5.1); SODIUM 132 mmol/L (136-145); TCO2 24 mmol/L (25-35)
--- NOTE | 2019-09-20 09:19 | Diag Imaging Result Doc PS360 ---
EXAM: ABDOMEN FLAT/UPRIGHT HISTORY: pain TECHNIQUE: Two views COMPARISON: 09/17/2019 FINDINGS: A nasogastric tube has been removed. No free air beneath the diaphragm. No organomegaly. Mildly distended small bowel loops and colon. There is stool in the colon. No foreign body. IMPRESSION: The findings may represent an ileus. Electronically signed by Jay Au 09/20/2019 9:17 AM
--- NOTE | 2019-09-20 13:07 | GENERAL SURGERY PROGRESS NOTE ---
DATE: 09/20/2019 SUBJECTIVE: She is having a large amount of ostomy output. Ostomy is pink. She is hungry. OBJECTIVE: Abdomen is soft, less distended. LABORATORY DATA: Electrolytes are all better now. Creatinine is 0.2. White count is normal. ASSESSMENT AND PLAN: A 59-year-old female with bowel obstruction following colon resection for obstructing colon mass. She is doing well. We will advance her diet and let her go home if she tolerates it. cc: Vicki Schmidt MD
[2019-09-20] MEDS: ATIVAN IV PRN (13:32)
[2019-09-20] MEDS: MIRALAX PO SCH (13:35)
[2019-09-20] MEDS: PROTONIX IV SCH (16:40)
[2019-09-20] MEDS: SODIUM CHLORIDE 0.9% INJ SCH (16:40)
[2019-09-20] MEDS: LIPOSYN 20% 250 ML IV SCH (17:10)
--- NOTE | 2019-09-20 19:44 | PROGRESS NOTE ---
DATE: 09/20/2019 SUBJECTIVE: Patient has no major complaints. OBJECTIVE: Vital Signs: Blood pressure is 121/60, heart rate 87, respiratory rate of 16, temperature 97.6 degrees, 100% on room air. Cardiovascular: Regular rate and rhythm. Pulmonary: Bilateral breath sounds clear to auscultation. Gastrointestinal: Abdomen soft, nontender, nondistended. Bowel sounds were positive. LABORATORY DATA: White count 7, hemoglobin 7.9 and 25, platelets of 436,000. Sodium 132. PROBLEM LIST: Small bowel obstruction, postop ileus status post recent colon resection with colostomy for colon cancer resection. Her diet has been advanced. She is doing well. She has still not had a lot of output but she does have bowel sounds. Looks well. We will continue her current Clinimix for 1 more day and see how she does, but she is actually looking pretty well. Anticipate possible discharge soon per recommendations per Dr. Schmidt. We will continue to follow closely. Appreciate his input. cc: Kervin Winston MD
[2019-09-21] MEDS: LOVENOX SUBQ SCH (05:19)
[2019-09-21] MEDS: MIRALAX PO SCH (09:19)
[2019-09-21] MEDS: DILAUDID IV PRN (09:19)
[2019-09-21] MEDS: ATIVAN IV PRN ×2 (10:41→14:55)
--- NOTE | 2019-09-21 11:56 | GENERAL SURGERY PROGRESS NOTE ---
DATE: 09/21/2019 The patient is doing okay this morning. She has been tolerating her diet. She has had passage of flatus as well as stool into the ostomy appliance. She is able to ambulate. cc: Rubio Eckert MD
--- NOTE | 2019-09-21 11:58 | GENERAL SURGERY PROGRESS NOTE ---
DATE: 09/21/2019 SUBJECTIVE: The patient is doing okay this morning. She is tolerating her diet. She has had flatus and stool come out her ostomy in the last few days. She is ambulating. OBJECTIVE: She is afebrile. Vital signs are stable.General: She is awake, alert, and oriented x3. No acute distress. Gastrointestinal: Soft, nondistended. Minimally tender. Incision is clean, dry, and intact. Stoma is pink and patent. LABORATORY: None today. ASSESSMENT AND PLAN: A 59-year-old female with recent low anterior resection. She had a subsequent bowel obstruction. This appears to have resolved. She is okay for discharge from my standpoint. cc: Rubio Eckert MD
[2019-09-21] MEDS: PROTONIX IV SCH (14:55)
[2019-09-21] MEDS: SODIUM CHLORIDE 0.9% INJ SCH (14:55)
[2019-09-21 15:33] VITALS: BP 94/45
--- NOTE | 2019-09-21 16:25 | DISCHARGE SUMMARY ---
ADMISSION DATE: 09/16/2019 DISCHARGE DATE: 09/21/2019 DISCHARGE DIAGNOSIS: Small-bowel obstruction associated with a recent colectomy and colostomy secondary to cancer. CONSULTATION: Dr. Schmidt. HOSPITAL COURSE: Briefly, a 59-year-old female with recent colon cancer resection, colostomy placed about two weeks prior. She has metastatic colon cancer with liver metastasis and she had an obstructive mass in the sigmoid. In any case, she has been analyzed. She was not having a bowel movement, so she came in for evaluation, and she was made NPO, surgery, NG tube, pain control. Dr. Schmidt subsequently evaluated the patient and monitored her. She almost left against medical advice. I do not know if she was just very upset the first 24 hours of her admission. She did receive a significant diagnosis, probably some degree of adjustment disorder, but overall she did okay. Her NG tube ended up coming out, I think by the . She had ostomy output, so her diet was slowly advanced. By the , she was tolerating p.o., although I do not think she had a bowel movement or ostomy output that last two days, but Dr. Eckert felt that she could go home. She was tolerating p.o. without difficulty. Vital signs were stable. She was discharged in stable condition. DISCHARGE MEDICATIONS: Adderall 30 b.i.d., Ativan 1 b.i.d. p.r.n., [place] 1 p.o. q.6 hours p.r.n. pain, Prilosec 40 daily, and Reglan 10 t.i.d. INSTRUCTIONS: Follow-up with Dr. Schmidt next week. TIME SPENT: 32 minutes. cc: Kervin Winston MD
== END 2019-09-21 16:14 | disposition home health service (06) | DRG 393 ==
LOC: SUPCPDRO → ED 11:54 → SUATTDRO 16:51 → 4N 16:51
PROVIDERS: ATTEND Internal Medicine

== ENCOUNTER 2020-01-15 09:18 | Inpatient (IN) ==
[2020-01-15] MEDS ORDERED: ZOFRAN IV ONE (09:39)
[2020-01-15] MEDS ORDERED: NS 1,000 ML IV ONE (09:39)
[2020-01-15] MEDS ORDERED: MORPHINE IV ONE ×2 (09:39→11:51)
[2020-01-15 10:35] LABS: BASO# 0.04 X1000 (0.0-0.2); BASO% 0.3 % (0.0-0.8); EOS# 0.05 X1000 (0.0-0.7); EOS% 0.4 % (0.0-10.0); HEMATOCRIT 26.7 % (37.0-47.0); HEMOGLOBIN 8.6 g/dL (12.0-16.0); IMM GRAN# 0.03 X1000 (0.0-0.04); IMM GRAN% 0.2 % (0.0-0.5); LYMPH# 1.02 X1000 (1.2-3.4); LYMPH% 8.2 % (20.5-51.1); MCH 31.5 PG (27-31); MCHC 32.2 g/dL (33-37); MCV 97.8 FL (81-99); MONO# 1.31 X1000 (0.11-0.59); MONO% 10.5 % (1.7-9.3); MPV 9.4 FL (7.4-10.4); NEUT# 10.05 X1000 (1.4-6.5); NEUT% 80.4 % (42.2-75.2); PLT 341 X1000 (130-400); RBC 2.73 XMIL (4.2-5.4)
--- NOTE | 2020-01-15 10:37 | Diag Imaging Result Doc PS360 ---
CT HEAD W/O CONTRAST - 01/15/2020 INDICATION: stroke like symptoms COMPARISON: None FINDINGS: There is ill-defined hypodensity at the lateral left cerebral hemisphere involving the temporal-parietal lobe junction. This extends to the deep cerebral white matter here. No mass effect or intracranial hemorrhage. No significant atrophy. The skull is intact. The sinuses are clear. IMPRESSION: Possible stroke in the left cerebral hemisphere. Consider further evaluation with a brain MRI. This exam was performed using automated exposure control, adjustment of mA or kV according to patient size, and/or use of iterative reconstruction technique Electronically signed by Marcelo Bethea 01/15/2020 10:35 AM
--- NOTE | 2020-01-15 10:40 | Diag Imaging Result Doc PS360 ---
EXAM: CHEST-PORTABLE 01/15/2020 HISTORY: stroke like symptoms TECHNIQUE: AP portable at 1034 COMMENT: The lungs are better expanded than on 09/16/2019. There is no evidence of pleural fluid this time and the lungs are clear. The heart and pulmonary vascularity are within normal limits. IMPRESSION: No acute disease. Electronically signed by Onesimo Mckeon 01/15/2020 10:37 AM
[2020-01-15 10:42] LABS: INR 1.22; PROTIME 15.6 Seconds (11.0-16.0)
--- NOTE | 2020-01-15 11:00 | EKG Report ---
Test Performed on : 01/15/2020 10:53:57 AM Test Reason : STROKE Blood Pressure : / mmHG Vent. Rate : 094 BPM Atrial Rate : 094 BPM P-R Int : 132 ms QRS Dur : 080 ms QT Int : 354 ms P-R-T Axes : 079 049 070 degrees QTc Int : 442 ms Normal sinus rhythm. Normal ECG When compared with ECG of 16-SEP-2019 14:06, No significant change was found Unconfirmed Result
[2020-01-15 11:08] LABS: ESTIMATED GFR > 60
[2020-01-15 11:10] LABS: AGAP 16; ALB/GLOB RATIO 0.9; ALBUMIN 3.2 g/dL (3.5-5.0); ALKALINE PHOSPHATASE 1166 U/L (32-104); BUN 16 mg/dL (8-22); CALCIUM 9.1 mg/dL (8.8-10.2); CHLORIDE 88 mmol/L (98-107); COSMO 254; CREATININE 0.4 mg/dL (0.5-0.9); GLUCOSE 94 mg/dL (70-104); GOT 187 U/L (10-30); GPT 147 U/L (10-36); LIPASE 8 U/L (13-60); POTASSIUM 5.5 mmol/L (3.5-5.1); SODIUM 126 mmol/L (136-145); TCO2 22 mmol/L (25-35); TOTAL BILIRUBIN 7.82 mg/dL (0.20-1.00); TOTAL PROTEIN 6.6 g/dL (6.3-8.3)
[2020-01-15] MEDS ORDERED: ASPIRIN PO ONE (11:52)
--- NOTE | 2020-01-15 11:52 | Diag Imaging Result Doc PS360 ---
MRI BRAIN W/WO CONTRAST - 01/15/2020 INDICATION: left stroke vs prain met COMPARISON: Head CT from earlier today FINDINGS: There is multifocal restricted diffusion in the left middle cerebral artery territory. These mainly affects the frontal-temporal junction, involving the cortex to some extent but also the deep cerebral white matter here. No mass effect or midline shift. No intracranial hemorrhage. No abnormal contrast enhancement. 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 Negative for metastatic disease. Electronically signed by Marcelo Bethea 01/15/2020 11:50 AM
--- NOTE | 2020-01-15 12:16 | PROVIDER DOCUMENTATION ---
This chart was entered by Lashell Leyva Scribe, acting as scribe for Jose Newsome MD. HPI-Neurological Disorder - General Chief Complaint: Stroke-Like Symptoms Stated Complaint: RT SIDE NUMBNESS Time Seen by Provider: 01/15/20 09:30 Source: family Allergies/Adverse Reactions: Patient Allergies Allergy/AdvReac Type Severity Reaction Status Date / Time No Known Allergies Allergy Verified 01/15/20 09:38 Home Medications: Home Medication List Medication Instructions Recorded Confirmed Last Taken Type Dextroamphetamine/Amphetamine 30 mg PO BID 07/22/19 01/15/20 01/08/20 History [Adderall 30 mg Tablet] Morphine Sulfate 15 mg PO Q4HR PRN 01/15/20 01/15/20 01/15/20 03:00 History - History of Present Illness-Neuro Nature of Presenting Problem: Patient is a 59 y/o female presenting to the ED today c/o stroke-like symptoms. Patient went to Dr. Moss's office for chemotherapy today and was sent to the ER for evaluation of stroke-like symptoms. Family reports that upon waking on Monday, 01/12, patient had noted right sided weakness, slurred speech, right facial droop, and difficulty swallowing. Family (son and [id number]) report patient "refused to come to ER" because she did not want to miss her chemotherapy appointment today. Patient has known colon cancer with metastasis to the liver and has been noncompliant with chemotherapy with multiple missed treatments. Patient denies all other signs/symptoms. Onset/Duration: reports: 3 days ago Timing: reports: still present Context: reports: impaired speech, paresthesia, facial droop, other (right sided weakness) Any recent trauma/injury?: reports: none New weakness or altered sensation location:: reports: RUE, RLE, right facial Cognitive Baseline: alert, oriented x3 Associated Symptoms: reports: denies symptoms Similar Symptoms Previously?: No Recently seen or treated by another doctor?: No Review of Systems - Adult - REVIEW OF SYSTEMS - ADULT Constitutional: reports: no symptoms reported. denies: chills, fever Eyes: reports: no symptoms reported Ears, Nose, Mouth & Throat: reports: no symptoms reported Cardiovascular: reports: no symptoms reported. denies: chest pain Respiratory: reports: no symptoms reported. denies: cough, shortness of breath Gastrointestinal: denies: abdominal pain, diarrhea, nausea, vomiting Genitourinary: reports: no symptoms reported Musculoskeletal: reports: no symptoms reported Neurological: reports: see HPI, slurred speech, other (right sided weakness and facial droop) Psychiatric: reports: no symptoms reported Endocrine: reports: no symptoms reported Hematologic/Lymphatic: reports: no symptoms reported Allergic/Immunologic: reports: no symptoms reported All Other Systems: Reviewed and Negative Past History - Adult - PAST MEDICAL HISTORY-ADULT Review of Records: reports: Old Records Reviewed, Nursing Assessment Review, Medications Reviewed, Social history reviewed & non-contributory. Major Childhood Illnesses: reports: denies history Cardiovascular: reports: denies history Respiratory: reports: denies history Gastrointestinal: reports: cancer Obstetrical/Gynecological: reports: denies history Genitourinary: reports: denies history Musculoskeletal: reports: denies history Neurological: reports: denies history Endocrine/Immune: reports: denies history Other Conditions: reports: denies history - PRIOR SURGERIES/PROCEDURES Surgical/Procedure History: reports: reviewed, not pertinent - IMMUNIZATION STATUS Childhood Immunizations: See Nurse Assessment Flu Vaccine: See Nurse Assessment - FAMILY HISTORY Family History: reviewed, not pertinent Physical Exam- Neurological - Physical Exam-Neuro Initial Vital Signs Reviewed: Yes General Appearance: alert, no apparent distress, cachetic, other (chronically ill appearing) Eye Exam: bilateral eye: other (sclera icteric) HENMT: normocephalic/atraumatic, other (dry mucous membranes) Head Injury: no evidence of injury Neck: full range of motion, normal inspection Respiratory: lungs clear, normal breath sounds, no respiratory distress, no accessory muscle use, increased rate Cardiovascular: no edema, tachycardia Abdominal Exam: non tender, soft, other (mid-low abdomen colostomy with brown stool) Lymphatic: no adenopathy Extremity: normal inspection, no pedal edema collar trimmer Exam: abnormal speech (slurred), facial droop (right) Coordination/Gait: normal finger to nose Motor/Sensory: weak motor strength RUE, weak motor strength RLE, other (loss of reflexes on right) Neurologic: facial droop (right), motor weakness (right upper and lower extremities), sensory deficit (decreased sensation on right side) Integumentary: normal turgor, warm/dry, jaundice Psych/Mental Status: normal mood/affect, normal thought content, normal thought process - Glascow Coma Scale Best Eye Response: (4) open spontaneously Best Verbal Response: (5) oriented Best Motor Response: (6) obeys commands Progress - PLAN OF CARE/RESULTS Progress/Plan/Lab Results: Vital Signs - 8 hr 01/15/20 09:23 Temperature 98.2 F Pulse Rate 103 H Respiratory Rate 20 Blood Pressure 108/89 O2 Sat by Pulse Oximetry 98 Laboratory Results - last 24 hr 01/15/20 01/15/20 01/15/20 10:05 10:05 10:05 WBC RBC Hgb Hct MCV MCH MCHC RDW Std Deviation Plt Count MPV Immature Gran % (Auto) Neut % (Auto) Lymph % (Auto) Dubois % (Auto) Eos % (Auto) Baso % (Auto) Immature Gran # (Auto) Neut # (Auto) Lymph # (Auto) Dubois # (Auto) Eos # (Auto) Baso # (Auto) PT INR PTT (Actin FS) Sodium 126 L Potassium 5.5 H Chloride 88 L Carbon Dioxide 22 L Anion Gap 16 BUN 16 Creatinine 0.4 L Estimated GFR/1.73 m2 > 60 BUN/Creatinine Ratio 40 Glucose 94 POC Glucose Calculated Osmolality 254 Calcium 9.1 Total Bilirubin 7.82 H AST 187 H ALT 147 H Alkaline Phosphatase 1166 H Troponin T High Sens 89 H Vos-J-Netzhluwkqu Pept Total Protein 6.6 Albumin 3.2 L Globulin 3.4 Albumin/Globulin Ratio 0.9 Lipase 8 L Plasma Lactate 2.0 01/15/20 01/15/20 01/15/20 10:05 10:05 10:05 WBC 12.50 H RBC 2.73 L Hgb 8.6 L Hct 26.7 L MCV 97.8 MCH 31.5 H MCHC 32.2 L RDW Std Deviation 15.0 H Plt Count 341 MPV 9.4 Immature Gran % (Auto) 0.2 Neut % (Auto) 80.4 H Lymph % (Auto) 8.2 L Dubois % (Auto) 10.5 H Eos % (Auto) 0.4 Baso % (Auto) 0.3 Immature Gran # (Auto) 0.03 Neut # (Auto) 10.05 H Lymph # (Auto) 1.02 L Dubois # (Auto) 1.31 H Eos # (Auto) 0.05 Baso # (Auto) 0.04 PT 15.6 INR 1.22 PTT (Actin FS) 35.0 Sodium Potassium Chloride Carbon Dioxide Anion Gap BUN Creatinine Estimated GFR/1.73 m2 BUN/Creatinine Ratio Glucose POC Glucose Calculated Osmolality Calcium Total Bilirubin AST ALT Alkaline Phosphatase Troponin T High Sens Wke-T-Kfanhzknmpn Pept 422 H Total Protein Albumin Globulin Albumin/Globulin Ratio Lipase Plasma Lactate 01/15/20 10:13 WBC RBC Hgb Hct MCV MCH MCHC RDW Std Deviation Plt Count MPV Immature Gran % (Auto) Neut % (Auto) Lymph % (Auto) Dubois % (Auto) Eos % (Auto) Baso % (Auto) Immature Gran # (Auto) Neut # (Auto) Lymph # (Auto) Dubois # (Auto) Eos # (Auto) Baso # (Auto) PT INR PTT (Actin FS) Sodium Potassium Chloride Carbon Dioxide Anion Gap BUN Creatinine Estimated GFR/1.73 m2 BUN/Creatinine Ratio Glucose POC Glucose 90 Calculated Osmolality Calcium Total Bilirubin AST ALT Alkaline Phosphatase Troponin T High Sens Uuq-U-Jruoswsessn Pept Total Protein Albumin Globulin Albumin/Globulin Ratio Lipase Plasma Lactate Orders Category Date Time Status Cardiac Monitoring DIRECTED Care 01/15/20 09:36 Active Finger Stick Blood Sugar (ED) DIRECTED Care 01/15/20 09:36 Active Resuscitation Status Routine Care 01/15/20 11:12 Ordered Saline Loc NOW Care 01/15/20 09:36 Active CHEST-PORTABLE [RAD] Stat Exams 01/15/20 09:[address] HEAD W/O CONTRAST [CT] Stat Exams 01/15/20 09:36 Completed MRI BRAIN W/WO CONTRAST [MRI] Stat Exams 01/15/20 10:41 Completed AMMONIA [CHEM] Stat Lab 01/15/20 10:05 Received BLOOD CULTURE [BLDCUL] Stat Lab 01/15/20 10:55 Ordered CBC WITH ELECTRONIC DIFF [HEME] Stat Lab 01/15/20 10:05 Completed COMPREHENSIVE METABOLIC PANEL [CHEM] Stat Lab 01/15/20 10:05 Completed LACTATE, PLASMA [CHEM] Stat Lab 01/15/20 10:05 Completed LIPASE [CHEM] Stat Lab 01/15/20 10:05 Completed PRO B-NATRIURETIC PEPTIDE Stat Lab 01/15/20 10:05 Completed PROTIME WITH INR [COAG] Stat Lab 01/15/20 10:05 Completed PTT [COAG] Stat Lab 01/15/20 10:05 Completed TROPONIN T HIGH SENSITIVITY Stat Lab 01/15/20 10:05 Completed URINALYSIS W/POSS RFLX CULT [URINALYSIS] Stat Lab 01/15/20 09:36 Uncollected URINE DRUG SCREEN Stat Lab 01/15/20 09:36 Uncollected 0.9% Sodium Chloride Inj [Ns] 1,000 ml Med 01/15/20 09:39 Discontinued IV 999 mls/hr Aspirin Med 01/15/20 11:52 Discontinued 325 mg PO NOW ONE Morphine Med 01/15/20 09:39 Discontinued 2 mg IV NOW ONE Morphine Med 01/15/20 11:51 Active 2 mg IV Q2H PRN PRN Morphine Med 01/15/20 11:51 Discontinued 4 mg IV NOW ONE Ondansetron [Zofran] Med 01/15/20 09:39 Discontinued 4 mg IV NOW ONE EKG [EKG] Stat Ther 01/15/20 09:36 Draft Result Diagrams: 01/15/20 10:05 01/15/20 10:05 - REASSESSMENT Reassessment #1 Time Reassessed: 12:15 Status: unchanged Reassessment Comment: GIven IVF bolus, ASA. - EKG 1 Time of EKG reading by physician:: 11:13 EKG Read and Signed by:: Jose Newsome EKG Interpretation (*Must complete 3 of following elements*): Normal Rate: 94 Rhythm: Normal sinus rhythm QRS: other (early transition, high voltage) - XRAY 1 XRAY Study: Chest Impression: See EMR Report (EXAM: CHEST-PORTABLE 01/15/2020 HISTORY: stroke like symptoms TECHNIQUE: AP portable at 1034 COMMENT: The lungs are better expanded than on 09/16/2019. There is no evidence of pleural fluid this time and the lungs are clear. The heart and pulmonary vascularity are within normal limits. IMPRESSION: No acute disease. Electronically signed by Onesimo Mckeon 01/15/2020 10:37 AM 01/15/20 1037 Interpreting Physician: Onesimo Mckeon MD Dictated Date/Time: 01/15/20 1037 cc: Jose Newsome MD; Jeffrey Sebastian MD) - CT/MRI 1 CT Study: Head Impression: Discussed w/Radiology, See EMR Report (CT HEAD W/O CONTRAST - 01/15/2020 INDICATION: stroke like symptoms COMPARISON: None FINDINGS: There is ill-defined hypodensity at the lateral left cerebral hemisphere involving the temporal-parietal lobe junction. This extends to the deep cerebral white matter here. No mass effect or intracranial hemorrhage. No significant atrophy. The skull is intact. The sinuses are clear. IMPRESSION: Possible stroke in the left cerebral hemisphere. Consider further evaluation with a brain MRI. This exam was performed using automated exposure control, adjustment of mA or kV according to patient size, and/or use of iterative reconstruction technique Electronically signed by Marcelo Bethea 01/15/2020 10:35 AM 01/15/20 1035 Interpreting Physician: Marcelo Bethea MD Dictated Date/Time: 01/15/20 1033 cc: Jose Newsome MD; Jeffrey Sebastian MD) 2 MRI Study: Brain Impression: Discussed w/Radiology, See EMR Report (MRI BRAIN W/WO CONTRAST - 01/15/2020 INDICATION: left stroke vs prain met COMPARISON: Head CT from earlier today FINDINGS: There is multifocal restricted diffusion in the left middle cerebral artery territory. These mainly affects the frontal-temporal junction, involving the cortex to some extent but also the deep cerebral white matter here. No mass effect or midline shift. No intracranial hemorrhage. No abnormal contrast enhancement. 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 Negative for metastatic disease. Electronically signed by Marcelo Bethea 01/15/2020 11:50 AM 01/15/20 1150 Interpreting Matt sician: Marcelo Bethea MD Dictated Date/Time: 01/15/20 1147 cc: Jose Newsome MD; Jeffrey Sebastian MD) - CONSULTS/PCP/HOSPITALIST Notification #1 *Consult/PCP/Hospitalist*: Marcelo Bethea Radiology Time Discussed: 10:45 Reason/Comments: CT findings #2 Consult: JOSE Ragsdale hospitalist Time Discussed: 12:16 Reason/Comments: Víctor White Disposition: Will see in ED, Admit Departure - Departure Date of Disposition Decision: 01/15/20 Time of Disposition Decision: 12:14 DIAGNOSIS: Colon cancer metastasized to liver, Left middle cerebral artery stroke Disposition: ADMITTED INPATIENT 09 Certified Medical Emergency: Emergent Condition: Poor Referrals and Follow-Ups: Jeffrey Sebastian MD [Primary Care Provider] - - Critical Care Note This patient required my direct & personal management of CC.: Yes Total Time (mins): 35 Critical Care Statement: This patient required my direct personal management to treat or rule out processes, the absence of which, could potentiallly result in sudden, clinically significant life or limb threatening deterioration. Attestation - Physician/ PUSHPA Attestation Patient care was provided by Advanced Practice Provider:: No The physician spent face to face time with patient:: Yes Advanced Practice Provider documentation review:: Supervising physician onsite and consulted in the evaluation and care of this patient. The physician did have a face to face encounter with the patient. - NIH Stroke Scale NIH Type: Initial Evaluation Level of Consciousness: 0-Alert LOC Questions (ask month and age): 0-Answers Both Correctly LOC Commands (ask to open & close eyes;make a fist, let go): 0-Obeys Both Correctly Best Gaze (horizontal eye movement): 0-Normal Visual (use finger movement, counting or visual threat): 0-No Visual Loss Facial Palsy (show teeth or raise eyebrows & close eyes tght: 2-Partial Paralysis Motor Function-left arm: 0-Normal Motor Function-right arm: 4-No Movement Motor Function-left le-Normal Motor Function-right le-No Movement Limb Ataxia(tlieju-uqab-fxnvmx, or heel to sarmiento): 0-No Ataxia Sensory(pin prick to face,arms,trunk,legs-compare side/side): 1-Mild to Moderate Decrease in Sensation Best Language(name item/read sentence.Ex-Down to Earth): 0-No Aphasia Dysarthria(Pt read words or say words Ex.Mama,Tip-Top,Thanks: 1-Mild-Mod Slurring Words Extinction and Inattention: 0-Normal NIH Total Score: 12 Modified Wayne Score Criteria: 4-moderately severe disability Stroke tPA Guidelines - Inclusion Criteria for IV tPA 18 years old or older: Yes Ischemic stroke with measurable deficit: Yes Onset <3 hours ago *OR* 3-4.5 hours ago: No - Consultation Candidate for:: NOT A CANDIDATE (symptoms present for 3 days) This chart was documented by the indicated scribe, (Lashell Leyva Scribe) and accurately reflects the services I performed and decisions made by me, Jose Newsome MD, as attested by the provider's signature.
[2020-01-15 12:23] LABS: URINE SOURCE CATH
[2020-01-15 12:35] LABS: BILIRUBIN URINE MODERATE (NEGATIVE); BLOOD URINE NEGATIVE (NEGATIVE); COLOR YELLOW; GLUCOSE URINE NEGATIVE (NEGATIVE); KETONE URINE NEGATIVE (NEGATIVE); LEUKOCYTES URINE NEGATIVE (NEGATIVE); NITRITE URINE NEGATIVE (NEGATIVE); PROTEIN URINE 70 mg/dL (NEGATIVE); SP GRAVITY URINE 1.024; TURBIDITY URINE HAZY (CLEAR); UROBILINOGEN URINE 12 mg/dL (NORMAL)
[2020-01-15 12:39] LABS: UR EPITHELIAL CELLS <10 /HPF (<10); URINE BACTERIA NEGATIVE /HPF; URINE RBC <10 /HPF (<10); URINE WBC <10 /HPF (<10)
[2020-01-15 12:41] LABS: UR AMPHETAMINES QUAL NONE DETECTED (NONE DETECT); UR BARBITUATES QUAL NONE DETECTED (NONE DETECT); UR BENZODIAZEPIN QUAL NONE DETECTED (NONE DETECT); UR CANNABINOIDS QUAL PRESUMPTIVE POSITIVE (NONE DETECT); UR COCAINE QUAL NONE DETECTED (NONE DETECT); UR METHADONE QUAL NONE DETECTED (NONE DETECT); UR OPIATES QUAL PRESUMPTIVE POSITIVE (NONE DETECT); UR OXYCODONE QUAL NONE DETECTED (NONE DETECT); UR PCP QUAL NONE DETECTED (NONE DETECT)
[2020-01-15 12:54] LABS: URINE YEAST NONE SEEN
--- NOTE | 2020-01-15 15:42 | NEUROLOGY CONSULTATION ---
DATE: 01/15/2020 HISTORY OF PRESENT ILLNESS: Ms. Coe is 59 years old and there is evidence of a recent dominant left hemisphere infarction. History from the patient is that she went to bed 5 days ago feeling well and at her neurologic baseline. She woke next day, 4 mornings ago, noticing weakness in the right limbs, difficulty walking because of right leg weakness, trouble chewing and swallowing, slurred speech, and trouble making herself understood with speech but no vision disturbance and no difficulty understanding what was said to her. She did not have significant headache. She was encouraged by family to seek medical attention but declined. She reports the deficit was stable over a few days and may be improved today. The family present at her bedside now agree that she is a little bit better today. There is no history of prior similar event. She has not had a previously diagnosed stroke or other neurologic event. She has a history of colon cancer with liver metastases. She has a chemotherapy program in progress. HOME MEDICINES: Include: Morphine sulfate and Adderall. She admits not taking Adderall recently. She uses cannabis. Her urine drug screen was positive for opiates and for cannabis and negative for amphetamines on presentation today. DIAGNOSTIC DATA: Labs showed sodium 126, elevated liver enzymes, WBC 12,500, anemia. Brain MRI today shows evidence of an acute left hemisphere infarction. This appears to be somewhat scattered with a single moderate area of infarction and a few tiny subcortical areas nearby all in the left middle cerebral territory. On my view, there may also be a tiny right subcortical infarction, with some restricted diffusion there. PHYSICAL EXAMINATION: VITAL SIGNS: She has been afebrile. Blood pressure was 108/89 and heart rate 103. GENERAL: On exam Ms. Coe is awake, alert, attentive, and appropriate. She is oriented. NEUROLOGICAL: Speech is significantly dysarthric but can be understood. Language function is intact on bedside testing of repeating, naming, comprehension. She did well with tests requiring digit distinction and right/left distinction. Visual ramos are full to confrontational finger counting. Extraocular movements are full. Facial motility is diminished in an upper motor neuron pattern on the right. Gag is intact. Tongue protrudes very slightly to the right. Shoulder shrug is diminished on the right. She has good power in the left limbs. I can overturn the right deltoid rating 2/5, wrist extensor 3/5, wood borer 1/5, iliopsoas 3/5, and anterior tibialis 4/5. Tone is increased in the right limbs. She did rapid alternating movements much better with her left hand. She was not able to bring her right finger to her nose. She did well with left wcwogh-dn-ehcy. I did not test her gait. She reports symmetric pinprick and light touch appreciation over the right and left limbs. She made very few errors with proprioception testing in the right hand at the second finger PIP joint. IMPRESSION: Relatively pure motor right hemiparesis with dysarthria but no definite language deficit, no definite vision deficit, and no definite sensory deficit. She has risk factors for stroke. I do not see evidence of metastatic disease in the brain. I have some concern for embolic event given the apparent multiple areas and distribution of infarction. I will order an echocardiogram and carotid ultrasound. Further plans will depend on those reports and on her clinical course. Thanks for asking Neurology to see Ms. Coe. cc: MD CARA Arroyo III
[2020-01-15] MEDS: MORPHINE IV PRN ×2 (15:54→18:37)
--- NOTE | 2020-01-15 17:16 | HISTORY AND PHYSICAL ---
PRIMARY CARE PHYSICIAN: Dr. Sebastian ONCOLOGIST: Fer Moss MD CHIEF COMPLAINT: CVA. HISTORY OF PRESENT ILLNESS: Ms. Coe is a 59-year-old, female with history of stage IV colon cancer with liver metastasis, ADHD, and GERD the patient does present to the ER today with stroke-like symptoms. The patient was sent here by her oncologist, Dr. Moss, the patient's family members who are at the bedside, stated that on Monday morning, the patient did arouse and had notable difficulty speaking with notable slurred speech, confusion, a notable facial droop, right arm paralysis, right leg weakness. They stated that her speaking has improved mildly. However, her arm paralysis has not improved. The patient still could not ambulate. She is able to eat and drink. She is no longer confused. They did not bring her to the ER at this time. They wanted to wait for her appointment to see Dr. Chaidez, which was 5 days later and that was today. When they did go to see Dr. Chaidez this morning, he told them to immediately come to the ER because she had a stroke. Head CT in the ER did show possible stroke in the left cerebral hemisphere. Brain MRI was performed, did show recent strokes in the left middle cerebral artery territory. The patient does deny any chills, fever, or flu-like symptoms, cough, congestion, neck pain, stiffness, excessive thirst, chest pain, palpitations, orthopnea or PND, dyspnea, nausea or vomiting, melena, hematopoiesis, diarrhea, constipation, dysuria, hematuria, syncope, dizziness, or any other pertinent symptoms at this time. REVIEW OF SYSTEMS: A 10 point review of systems has been obtained. All are negative except what is stated above in HPI. PAST MEDICAL HISTORY: 1. Colon cancer stage IV with metastasis to the liver. 2. ADHD. 3. GERD. PAST SURGICAL HISTORY: 1. Tonsillectomy. 2. Colon resection with colostomy and a replacement colostomy that was done in August 2019. FAMILY HISTORY: Noncontributory. SOCIAL HISTORY: The patient does live with her children. She does still smokes about 4 cigarettes a day. She denies any alcohol or illicit drug use. ALLERGIES: No known drug allergies. HOME MEDICATIONS: 1. Adderall 30 mg p.o. b.i.d. 2. Morphine sulfate 15, p.o. q.4 hours. PHYSICAL EXAMINATION: VITAL SIGNS: Temperature 98.2 degrees, pulse rate 103, respiratory rate 20, blood pressure 108/89, O2 saturation 98% on room air. GENERAL: This is a 59-year-old, female. She is very thin and very frail. She is in no acute distress at the present time. HEENT: Atraumatic, normocephalic. Pupils are equal, round, reactive to light. Mucous membranes are dry. NECK: Supple. No lymphadenopathy. Trachea is midline. No JVD. No thyromegaly. No bruit. CARDIOVASCULAR: Regular rate and rhythm. No murmurs, gallops, or rubs appreciated. RESPIRATORY: Lung sounds are clear with equal chest excursion. Respirations are nonlabored. No accessory muscle usage. GASTROINTESTINAL: Abdomen is flat, it is nontender, nondistended. There is a colostomy intact. GENITOURINARY: There is no suprapubic tenderness noted. Patient is able to void without difficulty. NEUROLOGIC: The patient is awake, alert, and oriented. She is having some slurred speech and is having difficulty getting words out. Some dysarthria noted. EXTREMITIES: There is no clubbing, no cyanosis and no edema. DP and PT pulses are present and palpable. MUSCULOSKELETAL: The patient's right arm is completely flaccid. The right leg does have significant decreased strength all other strength is fully intact. SKIN: Warm, dry, intact. No rashes. No bruises. No diaphoresis. LABS AND DIAGNOSTICS: White blood cell count 12.5, hemoglobin 8.6, hematocrit 26.7, platelet count 341,000. PT 15.6, INR is 1.22. Sodium 126, potassium 5.5, chloride 88, carbon dioxide 22, BUN 16, creatinine 0.4, glucose is 94, lipase is 8. ProBNP is 422. Urinalysis is positive for opiates and cannabinoids. MRI of the brain shows recent strokes in the left middle cerebral artery territory and negative for metastatic disease. Head CT does show possible stroke in the left cerebral hemisphere. Chest x-ray just showed no acute disease. ASSESSMENT AND PLAN: 1. Acute cerebrovascular accident. We will admit this patient to the medical floor. We will consult Dr. Romero. We will place this patient on a director of housing. The patient is a DNR level 1. Those were her wishes. We will do vital signs routine. Provide supplemental O2. Do echocardiogram. We will consult physical therapy and speech therapy. We will start this patient on Lipitor and aspirin. We will do a lipid profile. We will do aspiration precautions. The patient has been eating and drinking at home. I have started her on a mechanical soft diet. We will do neuro checks. 2. Hyponatremia and hyperkalemia. I have started this patient on some IV fluid hydration. Normal saline at 75 mL/h. We will repeat labs in the morning. 3. Volume depletion. I have started the patient on IV fluid hydration, normal saline at 75 mL/h. We are going to repeat labs in the morning. 4. Colon cancer stage IV with metastasis to the liver. I have consulted Dr. Moss. We appreciate his recommendations. 5. Leukocytosis. This could possibly be reactive. We will repeat labs in the morning and provide patient with IV fluid hydration. She has not had any fever and lactates are within range. 6. Chronic pain secondary to #4. We will resume her home pain medication regimen. 7. Deep venous thrombosis prophylaxis. Sequential compression device. Dictated by JOSE Toribio for Tari Renee MD cc: MD Dr. Jaz Goodson I performed a face to face encounter on the patient. I reviewed all labs and imaging on the patient. I agree with the H&P as dictated. [facility]
--- NOTE | 2020-01-15 17:33 | ECHO REPORT ---
ORDER DATE: 01/15/2020 INDICATION: Stroke. FINDINGS: 1. Right atrium appears normal in size. 2. Mild tricuspid regurgitation. RV systolic pressure 31. 3. Normal RV size and systolic function. 4. Trace pulmonic insufficiency. 5. Normal left atrial size with a volume index of 25. 6. No mitral prolapse. Mild mitral regurgitation. 7. Normal LV size, end-diastolic dimension of 3.5 cm. Normal wall thicknesses. The posterior and interventricular septal wall thickness is 0.7 cm each. Normal LV systolic function. Estimated EF of 60% with normal wall motion. 8. Aortic valve opens well. It is trileaflet. Mild insufficiency. No evidence of stenosis. 9. The aorta appears normal in visualized segments. 10. No pericardial effusion seen. 11. Normal diastolic function. cc: MD Dana Chavez III, MD
[2020-01-15] MEDS: ZOFRAN IV PRN (18:42)
[2020-01-15] MEDS: NS 1,000 ML IV SCH (18:42)
[2020-01-15] MEDS ORDERED: AMPHETAMINE PO SCH (21:00)
[2020-01-15] MEDS ORDERED: DEXTROAMPHETAMINE PO SCH (21:00)
[2020-01-15] MEDS: LIPITOR PO SCH (23:23)
[2020-01-16] MEDS: MORPHINE IV PRN (03:58)
[2020-01-16] MEDS: NS 1,000 ML IV SCH (04:42)
[2020-01-16] MEDS: PRILOSEC PO SCH (06:17)
[2020-01-16] MEDS: MORPHINE IR PO PRN ×5 (06:33→23:14)
[2020-01-16 08:36] LABS: BASO# 0.03 X1000 (0.0-0.2); BASO% 0.2 % (0.0-0.8); EOS# 0.05 X1000 (0.0-0.7); EOS% 0.4 % (0.0-10.0); HEMATOCRIT 23.8 % (37.0-47.0); HEMOGLOBIN 7.6 g/dL (12.0-16.0); IMM GRAN# 0.03 X1000 (0.0-0.04); IMM GRAN% 0.2 % (0.0-0.5); LYMPH# 0.83 X1000 (1.2-3.4); LYMPH% 6.3 % (20.5-51.1); MCH 31.4 PG (27-31); MCHC 31.9 g/dL (33-37); MCV 98.3 FL (81-99); MONO# 1.37 X1000 (0.11-0.59); MONO% 10.4 % (1.7-9.3); MPV 9.5 FL (7.4-10.4); NEUT# 10.91 X1000 (1.4-6.5); NEUT% 82.5 % (42.2-75.2); PLT 347 X1000 (130-400); RBC 2.42 XMIL (4.2-5.4); RDW 15.8 % (11.5-14.5); WBC 13.22 X1000 (4.8-10.8)
[2020-01-16 08:49] LABS: AGAP 14; ALB/GLOB RATIO 0.9; ALBUMIN 2.6 g/dL (3.5-5.0); ALKALINE PHOSPHATASE 1188 U/L (32-104); BUN 9 mg/dL (8-22); CHLORIDE 95 mmol/L (98-107); COSMO 258; CREATININE 0.4 mg/dL (0.5-0.9); ESTIMATED GFR > 60; GLUCOSE 97 mg/dL (70-104); GOT 149 U/L (10-30); GPT 123 U/L (10-36); POTASSIUM 3.7 mmol/L (3.5-5.1); SODIUM 129 mmol/L (136-145); TCO2 20 mmol/L (25-35); TOTAL BILIRUBIN 8.01 mg/dL (0.20-1.00); TOTAL PROTEIN 5.6 g/dL (6.3-8.3)
[2020-01-16] MEDS: ASPIRIN PO SCH (10:40)
--- NOTE | 2020-01-16 11:57 | NEUROLOGY PROGRESS NOTE ---
DATE: 01/16/2020 SUBJECTIVE: Ms. Coe has continued right hemiparesis. Family at the bedside reports she has a good bit of discomfort when awake, and she recently received a dose of pain medicine and is sleeping now. Therefore, I did not wake her. Family reports her dysarthria has been unchanged. They have not noticed any new neurologic deficit. Echocardiogram did not show source of embolus. Carotid ultrasound report is pending. Lipid profile shows total cholesterol 243, HDL 23, LDL 102, VLDL 31 and triglycerides 156. Systolic blood pressures have been stable, 110s-130s. I do not have any new suggestion from Neurology standpoint. She is not a candidate for aggressive anticoagulation. Further plans will depend on the carotid ultrasound report and on her clinical course. Thanks for asking Neurology to see Ms. Coe. cc: Dana Romero III, MD
--- NOTE | 2020-01-16 12:44 | Carotid Study ---
DATE: 01/15/2020 REQUESTING PHYSICIAN: Dr. Romero. ENERGY CONSERVATION SPECIALIST: Naseem. INDICATION: CVA. EQUIPMENT: [employer] Vivid E9 ultrasound system with a 9L-D transducer. FINDINGS: Complete diagram of ultrasound images can be seen scanned in the patient's medical record. The peak systolic velocity noted on the right side is in the distal internal carotid artery and is noted to be 73. The peak systolic velocity noted on the left side is in the mid internal carotid artery and is noted to be 100. The calculated internal to common ratio on the right 0.85, on the left 0.96. Calculated stenosis on the right 0 to 39 percent, left 0 to 39 percent. There is some atherosclerosis but at this time it does not produce a hemodynamically significant flow-limiting stenosis. Both vertebral arteries are antegrade flow. INTERPRETATION: By strict velocity criteria, no hemodynamically significant flow-limiting stenosis is noted. cc: MD Dana Griffith III, MD
--- NOTE | 2020-01-16 14:01 | HEMO/ONC CONSULTATION ---
DATE: 01/16/2020 REASON FOR CONSULTATION: This is a known patient of ours for the treatment of stage IV colon cancer with metastasis to the liver. HISTORY OF PRESENT ILLNESS: Ms Coe is a 60-year-old female with a recent diagnosis of stage IV colon cancer with metastasis to liver. She came to our office last Monday seeking help for pain. She has been extremely noncompliant and has not started any treatments for her cancer. She states 2 days after seeing us, she woke up with significant right- sided weakness and slurred speech. She was unable to use her right arm, her right leg and she states over the last 4 days, it has slowly improved but is still very weak. We sent the patient from our office to the ER. Evaluation in the ER with a brain MRI showed recent strokes in the left middle cerebral artery territory. It also confirm she had no brain metastasis. The patient's family members note that she has been difficult to arouse, notable slurred speech, confusion, noticeable facial droop, right arm paralysis and right leg weakness. They are helping her get around in a wheelchair. Some of this has improved over the week as she has refused to seek help. The patient was admitted for further evaluation. The patient complains of pain. PAST MEDICAL HISTORY: 1. Stage IV colon cancer with metastasis to the liver. 2. ADHD. 3. GERD. 4. Chronic marijuana use. PAST SURGICAL HISTORY: 1. Tonsillectomy. 2. Colon resection with colostomy and a replacement colostomy that was done in August 2019. SOCIAL HISTORY: The patient smokes about 4 cigarettes a day. She has 1 to 2 joints of marijuana a day. She denies alcohol or any other illicit drug use. ALLERGIES: No known allergies. HOME MEDICATIONS: Adderall, morphine sulfate IR 15 mg. REVIEW OF SYSTEMS: The patient complains of a significant amount of pain to her right upper quadrant. Complaints of weakness to her right and right leg. She denies any constipation, diarrhea, nausea, vomiting, or syncope. VITAL SIGNS: Temperature 98.8 degrees, pulse rate 99, respiratory rate 12, blood pressure 103/70, O2 saturation 98% on room air. She is in 8/10 generalized pain. PHYSICAL EXAMINATION: General: A very thin and frail female, in no acute distress. She is lying in her bed comfortably. HEENT: Sclerae is anicteric. PERRLA. Oral mucosa is dry. Cardiovascular: Regular rate and rhythm, slightly tachycardic. No murmur is appreciated. Normal S1, S2. Respiratory: Lung sounds are clear to auscultation. Normal respiratory effort. Gastrointestinal: Abdomen is soft, nontender, nondistended. Colostomy bag noted. Neurological: Alert and oriented x3. Some dysarthria noted. The patient able to converse appropriately. Extremities: No lower extremity edema noted. Musculoskeletal: Flaccid right arm. Decreased strength to right leg. LABORATORY DATA: WBCs 13.22, hemoglobin 7.6, hematocrit 23.8, platelet count 347,000. Sodium 129, potassium 3.7, calcium 8.0. Total bilirubin 8.01, AST 149, ALT 123, alkaline phosphatase 188. Albumin 2.6. Drug screen positive for opiates and cannabinoids. RADIOLOGY: 1. Carotid Doppler study shows no hemodynamically significant flow-limiting stenosis is noted. 2. Echo Doppler. Ejection fraction of 60%. 3. Brain MRI. Recent strokes in the left middle cerebral artery territory. Negative for metastatic disease. 4. Head CT. Possible stroke in the left cerebral hemisphere. 5. Chest x-ray. No acute pathology. ASSESSMENT AND PLAN: 1. Acute cerebrovascular accident. Neurology has evaluated the patient. She is not a candidate for aggressive anticoagulation. The patient's symptoms have improved slowly. She is a DNR per her choice. 2. Stage IV colon cancer with metastasis to the liver. At this time, we have consulted Palliative Care. We have discussed comfort measures with the patient. We will continue to monitor. 3. Hyponatremia. Continue to gently hydrate the patient. 4. Volume depletion. Continue to gently hydrate the patient. 5. Chronic pain due to colon cancer. The patient will continue to need pain medication to keep her comfortable. 6. Deep venous thrombosis prophylaxis. Make sure the patient has sequential compression devices in place. 7. Hyperbilirubinemia. The patient has significant liver metastasis causing her bilirubin and LFTs to be elevated. We are continuing to monitor. The patient starting to show some jaundice. Dictated by JOSE Nation for Fer Moss MD Patient seen and examined. Admitted with [facility]. Stage 4 colon cancer. Not a treatment candidate. Hopsice discussed. Consult palliative care. Fer Moss MD cc: Fer Moss [facility]
--- NOTE | 2020-01-16 18:12 | PROGRESS NOTE ---
DATE: 01/15/2020 SUBJECTIVE: The patient is sitting up in bed. She states that she is having generalized pain. She still has right-sided weakness and difficulty with word finding. OBJECTIVE: Vital Signs: Temperature 98.7 degrees, blood pressure 105/47, heart rate 100, respirations 14, O2 saturation 98% on room air. General: This is a chronically ill-appearing elderly female sitting up in bed in no acute distress. Heart: S1, S2 normal. Tachycardic. Lungs: Equal air entry bilaterally. No wheezing. No rales. Abdomen: Positive bowel sounds. Soft, nontender, nondistended. Extremities: No edema. No cyanosis. Neurologic: The patient is alert and oriented x4. The patient has right-sided hemiparesis and dysarthria. LABS: White blood cell count 13, hemoglobin 7.6, hematocrit 23, platelets 347,000. Sodium 129, potassium 3.7, chloride 95, CO2 20, BUN 9, creatinine 0.4, glucose 97. AST 149, ALT 123, alkaline phosphatase 1188. ASSESSMENT AND PLAN: 1. Left middle cerebral artery territory cerebrovascular accident with right hemiparesis and dysarthria. We will continue on aspirin and Lipitor. The carotid ultrasound was noted to be unremarkable as well as the echocardiogram. The patient has been counseled about the importance of smoking cessation and to be compliant with her medications. Continue with physical therapy. The patient will likely require inpatient rehab placement. [facility] has been consulted to assist with placement. 2. Stage IV colon cancer with metastasis to the liver. Aware. The patient is followed by Dr. Moss. 3. Chronic marijuana use. Aware. 4. Constipation. We will start the patient on MiraLAX and Colace. 5. Disposition. Continue with physical therapy. [facility] is working on discharge planning. cc: Tari Renee MD
[2020-01-16] MEDS: LIPITOR PO SCH (23:56)
[2020-01-17] MEDS: NS 1,000 ML IV SCH ×2 (05:57→06:03)
[2020-01-17] MEDS: PRILOSEC PO SCH ×2 (05:57→06:07)
[2020-01-17 07:47] LABS: BASO# 0.02 X1000 (0.0-0.2); BASO% 0.2 % (0.0-0.8); EOS# 0.08 X1000 (0.0-0.7); EOS% 0.8 % (0.0-10.0); HEMATOCRIT 23.5 % (37.0-47.0); HEMOGLOBIN 7.4 g/dL (12.0-16.0); IMM GRAN# 0.03 X1000 (0.0-0.04); IMM GRAN% 0.3 % (0.0-0.5); LYMPH# 0.68 X1000 (1.2-3.4); LYMPH% 6.7 % (20.5-51.1); MCH 31.1 PG (27-31); MCHC 31.5 g/dL (33-37); MCV 98.7 FL (81-99); MONO# 1.05 X1000 (0.11-0.59); MONO% 10.3 % (1.7-9.3); MPV 9.3 FL (7.4-10.4); NEUT# 8.35 X1000 (1.4-6.5); NEUT% 81.7 % (42.2-75.2); PLT 311 X1000 (130-400); RBC 2.38 XMIL (4.2-5.4); RDW 16.4 % (11.5-14.5); WBC 10.21 X1000 (4.8-10.8)
[2020-01-17] MEDS: MORPHINE IV PRN (07:50)
[2020-01-17 07:59] LABS: AGAP 14; BUN 9 mg/dL (8-22); CALCIUM 8.2 mg/dL (8.8-10.2); CHLORIDE 97 mmol/L (98-107); COSMO 261; CREATININE 0.3 mg/dL (0.5-0.9); ESTIMATED GFR > 60; GLUCOSE 90 mg/dL (70-104); POTASSIUM 3.9 mmol/L (3.5-5.1); SODIUM 131 mmol/L (136-145); TCO2 20 mmol/L (25-35)
[2020-01-17] MEDS: ASPIRIN PO SCH (07:59)
[2020-01-17 08:26] LABS: ALB/GLOB RATIO 1.1; ALBUMIN 2.7 g/dL (3.5-5.0); DIRECT BILIRUBIN 5.8 mg/dL (0.00-0.20); TOTAL BILIRUBIN 7.72 mg/dL (0.20-1.00); TOTAL PROTEIN 5.2 g/dL (6.3-8.3)
[2020-01-17 11:33] VITALS: BP 91/66
[2020-01-17] MEDS: MORPHINE IR PO PRN (11:52)
[2020-01-17] MEDS: ZOFRAN IV PRN (13:19)
--- NOTE | 2020-01-17 18:58 | NEUROLOGY PROGRESS NOTE ---
DATE: 01/17/2020 Ms. Coe is awake, alert, attentive. She has very slight difficulty with word finding and makes mistakes with repeating pronouns. Speech is slightly dysarthric but easily understood. Right hemiparesis continues prominent, but there is still some fluctuating effort, making precise measurement difficult. I do not find any new neurologic deficit. Systolic blood pressures have been 100 to 130s over the last 24 hours. Echocardiogram showed no source of embolus. Carotid ultrasound showed no hemodynamically significant stenosis bilaterally. I do not think we need further neurologic workup from stroke standpoint. I would continue current management. Thanks for asking Neurology to see Ms. Coe. cc: MD CARA Arroyo III
--- NOTE | 2020-01-18 01:25 | DISCHARGE SUMMARY ---
ADMISSION DATE: 01/15/2020 DISCHARGE DATE: 01/17/2020 PRIMARY CARE PHYSICIAN: Dr. Jeffrey Sebastian. ONCOLOGIST: Dr. Fer Moss. FINAL DISCHARGE DIAGNOSES: 1. Left middle cerebral artery territory cerebrovascular accident with right hemiparesis and dysarthria. 2. Stage IV colon cancer with metastasis to the liver. 3. Anemia of chronic disease. 4. Hyponatremia. 5. Transaminitis secondary to liver metastasis. 6. Chronic pain. 7. Anxiety disorder. CONSULTATIONS: 1. Neurology consultation with Dr. Romero. 2. Oncology consultation with Dr. Moss. IMAGIN. Chest x-ray performed on 01/15/2020, which revealed no acute disease. 2. Head CT performed on 01/15/2020, which revealed a possible stroke in the left cerebral hemisphere. 3. A brain MRI performed on 01/15/2020, which revealed recent strokes in the left middle cerebral artery territory. Negative for metastatic disease. 4. A echocardiogram performed on 01/15/2020, which revealed an ejection fraction of 60%. Normal diastolic function. No pericardial effusion. 5. Carotid Doppler study which revealed no hemodynamically significant flow limiting stenosis. HOSPITAL COURSE: Ms. Coe is a 60-year-old female with stage IV colon cancer who presented to the ER with a chief complaint of right-sided weakness. A head CT was done that revealed the possibility of a left cerebral hemisphere stroke. This was later confirmed with an MRI. In light of these findings, the patient was admitted to the hospitalist service. A stroke workup was initiated and the patient was started on aspirin and Lipitor. The echocardiogram was noted to be unremarkable and the carotid Doppler study did not show any significant stenosis. The patient was seen by physical therapy and occupational therapy. Over the course of the hospitalization, the patient's mobility improved slightly and she decided that she wanted to continue with home health as outpatient and to have the physical therapist come and work with her in her home versus going to an inpatient rehabilitation center. The patient was noted to have transaminitis secondary to her known liver metastasis. The patient was ultimately cleared for discharge home on 01/17/2020. DISCHARGE MEDICATIONS: 1. Lipitor 20 mg oral at bedtime. 2. Zofran 4 mg oral every 6 hours p.r.n. for nausea. 3. Aspirin 325 mg oral daily. 4. Xanax 0.25 mg oral every 8 hours p.r.n. for anxiety. 5. Colace 100 mg oral daily. 6. MiraLAX 17 g oral daily. 7. Morphine sulfate 15 mg oral every 4 hours p.r.n. for pain. DISCHARGE DIET: Low-cholesterol diet. ACTIVITY: As tolerated. FOLLOWUP INSTRUCTIONS: The patient will need to follow up with Dr. Moss as scheduled by his clinic. The patient will need to follow up with Dr. Sebastian in one week. cc: Tari Renee MD
== END 2020-01-17 14:00 | disposition home health service (06) | DRG 65 ==
LOC: ED 09:18 → EDIPHOLD 15:07 → 3N 20:15
PROVIDERS: ATTEND Internal Medicine

== ENCOUNTER 2020-01-30 10:09 | Inpatient (IN) ==
[2020-01-30] MEDS ORDERED: NS 1,000 ML IV ONE ×2 (10:13)
[2020-01-30] MEDS ORDERED: ZOSYN 4.5 GM in NS 100 ML IV SCH (10:15)
[2020-01-30] MEDS ORDERED: PITRESSIN 40 UNIT in NS 100 ML IV SCH (10:15)
[2020-01-30] MEDS ORDERED: EPINEPHRINE 4 MG in NS 250 ML IV SCH (10:15)
[2020-01-30] MEDS ORDERED: LEVOPHED 8 MG in D5 1/2 NS 250 ML IV SCH (10:15)
[2020-01-30 10:39] LABS: ALLEN TEST YES; BE -7.6 mmoll (-3.0-3.0); BLOOD TYPE ARTERIAL; HCO3-(ACT) 18.9 mmoll (20.0-26.0); METHB 0.9 % (0.0-1.5); O2(CT) 11.3 mL/dL (15.0-23.0); O2HB 91.4 % (95.0-99.0); PCO2(98.6) 31 mmHg (35-45); PO2(98.6) 70 mmHg (60-100); SAMPLE BLOOD; SAO2 96.3 % (95.0-100.0); THB 8.7 g/dL (11.5-17.4); pH(98.6) 7.35 (7.35-7.45)
[2020-01-30] MEDS ORDERED: MORPHINE IV ONE (10:57)
--- NOTE | 2020-01-30 11:15 | Diag Imaging Result Doc PS360 ---
EXAM: CHEST-PORTABLE 01/30/2020 HISTORY: ams TECHNIQUE: AP portable at 1058 COMMENT: There is ill-defined opacity of the right lower lobe which was not present on 01/15/2020. The heart size and pulmonary vascularity are within normal limits. IMPRESSION: Right lower lobe atelectasis versus pneumonia. Electronically signed by Onesimo Mckeon 01/30/2020 11:13 AM
[2020-01-30 11:37] LABS: BASO# 0.02 X1000 (0.0-0.2); BASO% 0.1 % (0.0-0.8); HEMATOCRIT 25.8 % (37.0-47.0); HEMOGLOBIN 8.1 g/dL (12.0-16.0); IMM GRAN# 0.12 X1000 (0.0-0.04); IMM GRAN% 0.4 % (0.0-0.5); MCH 30.9 PG (27-31); MCHC 31.4 g/dL (33-37); MCV 98.5 FL (81-99); MONO# 1.99 X1000 (0.11-0.59); MONO% 7.3 % (1.7-9.3); MPV 10.7 FL (7.4-10.4); NEUT# 23.94 X1000 (1.4-6.5); NEUT% 88.2 % (42.2-75.2); PLT 134 X1000 (130-400); RBC 2.62 XMIL (4.2-5.4); RDW 18.1 % (11.5-14.5); WBC 27.17 X1000 (4.8-10.8)
[2020-01-30 11:57] LABS: ALB/GLOB RATIO 0.8; ALBUMIN 2.5 g/dL (3.5-5.0); CREATININE 2.4 mg/dL (0.5-0.9); TOTAL BILIRUBIN 12.26 mg/dL (0.20-1.00); TOTAL PROTEIN 5.6 g/dL (6.3-8.3)
[2020-01-30 11:59] LABS: INR 2.32
[2020-01-30 12:00] LABS: PTT 42.2 Seconds (22.3-41.8)
[2020-01-30 12:05] LABS: POTASSIUM 6.3 mmol/L (3.5-5.1)
[2020-01-30] MEDS ORDERED: FENTANYL IV ONE (12:07)
[2020-01-30] MEDS ORDERED: MORPHINE IV PRN (13:39)
[2020-01-30] MEDS ORDERED: ATIVAN IV PRN (13:40)
[2020-01-30] MEDS ORDERED: ATROPINE 1 % OPHTH SOLN SL PRN (13:40)
[2020-01-30] MEDS ORDERED: TYLENOL PR PRN (13:41)
[2020-01-30] MEDS ORDERED: HALDOL IV PRN (13:41)
[2020-01-30] MEDS ORDERED: PHENERGAN PR PRN (13:42)
[2020-01-30] MEDS ORDERED: TRANSDERM-SCOP TD SCH (13:45)
[2020-01-30 13:47] VITALS: BP 91/47
[2020-01-30] MEDS ORDERED: DULCOLAX PR PRN (13:54)
--- NOTE | 2020-01-30 14:17 | EKG Report ---
Test Performed on : 01/30/2020 11:28:40 AM Test Reason : ED. NO EKG ORDER FOR MUSE Blood Pressure : / mmHG Vent. Rate : 083 BPM Atrial Rate : 083 BPM P-R Int : 150 ms QRS Dur : 084 ms QT Int : 398 ms P-R-T Axes : 076 043 051 degrees QTc Int : 467 ms Normal sinus rhythm. Low voltage QRS Nonspecific T wave abnormality Abnormal ECG When compared with ECG of 15-JAN-2020 10:53, (Unconfirmed) No significant change was found Unconfirmed Result
--- NOTE | 2020-01-30 16:38 | HISTORY AND PHYSICAL ---
CHIEF COMPLAINT: Confusion at home. HISTORY OF PRESENT ILLNESS: Ms Coe is a 60-year-old female with a history of metastatic colon cancer with metastases to the liver, a recent left middle cerebral artery CVA and anxiety disorder who was brought to the ER because the patient was noted to be confused. Upon arrival to the ER, the patient was noted to be septic and hypotensive. Further laboratory studies were done that revealed that the patient was in acute renal failure, worsening liver failure and appeared to have pneumonia as well. After discussion with the family regarding the patient's poor prognosis they requested hospice and palliative care services. The patient was also made a DNR level 1 and they stated that they wanted the patient to be made comfortable. PAST MEDICAL HISTORY: 1. Metastatic colon cancer with metastasis to the liver. 2. Anxiety disorder. 3. GERD. 4. Left middle cerebral artery territory cerebrovascular accident with right hemiparesis. 5. Chronic pain syndrome. 6. Transaminitis secondary to liver metastasis. 7. Anemia of chronic disease. 8. Chronic hyponatremia. PAST SURGICAL HISTORY: 1. Tonsillectomy. 2. Colon resection with colostomy. FAMILY HISTORY: Noncontributory. SOCIAL HISTORY: The patient lives at home with her family. The patient smokes tobacco. ALLERGIES: No known drug allergies. HOME MEDICATIONS: 1. Lipitor 20 mg oral at bedtime. 2. Aspirin 325 mg oral daily. 3. Colace 100 mg oral daily. 4. MiraLAX 17 g oral daily. 5. Morphine sulfate 15 mg oral every 4 hours p.r.n. for pain. 6. Xanax 0.25 mg oral every 8 hours p.r.n. for anxiety. REVIEW OF SYSTEMS: Unable to obtain due to the patient's altered mental status. PHYSICAL EXAMINATION: VITAL SIGNS: Temperature 97.2 degrees, blood pressure 91/47, heart rate 91, respirations 17, O2 saturation 95% on room air. GENERAL: This is a chronically ill-appearing elderly female lying in bed, in mild distress. SKIN: Extensive jaundice involving the entire body. HEENT: PERRLA, EOMI. Scleral icterus is present. HEART: S1, S2 normal. Tachycardic. LUNGS: Coarse breath sounds bilaterally. ABDOMEN: Positive bowel sounds. Soft, nontender, nondistended. EXTREMITIES: No edema. No cyanosis. No calf tenderness. NEUROLOGIC: The patient is awake, but lethargic. She is able to move all 4 extremities. LABORATORY AND DIAGNOSTIC DATA: White blood cell count 27, hemoglobin 8.1, hematocrit 25, platelets 134,000. INR 2.3. Sodium 125, potassium 6.3, chloride 85, CO2 17, BUN 44, creatinine 2.4, glucose 76, calcium 7, total bilirubin 12, AST 1472, ALT 335, alkaline phosphatase 1741, ammonia 51, lactate 3.1. Chest x-ray shows right lower lobe pneumonia. ASSESSMENT AND PLAN: 1. Septic shock. 2. Right lower lobe pneumonia. 3. Acute kidney injury. 4. Hyponatremia. 5. Hyperkalemia. 6. Transaminitis secondary to liver metastasis. 7. Anemia of chronic disease. 8. Anion gap metabolic acidosis. 9. Hypocalcemia. PLAN: The plan of care has been discussed with [facility] and the family has requested comfort measures only. Orders have been placed for medications to provide comfort for the patient and the patient will be admitted to inpatient GIP with [facility] following. cc: Tari Renee MD
[2020-01-30] MEDS: ATIVAN IV PRN ×2 (16:57→22:20)
--- NOTE | 2020-02-04 13:13 | PROVIDER DOCUMENTATION ---
This chart was entered by Minal Heaton Scribe, acting as scribe for Jose Newsome MD. HPI-Neurological Disorder - General Stated Complaint: AMS Time Seen by Provider: 01/30/20 10:09 Source: family Allergies/Adverse Reactions: Patient Allergies Allergy/AdvReac Type Severity Reaction Status Date / Time No Known Allergies Allergy Verified 01/30/20 11:35 Home Medications: Home Medication List Medication Instructions Recorded Confirmed Last Taken Type Dextroamphetamine/Amphetamine 30 mg PO BID 07/22/19 01/15/20 01/08/20 History [Adderall 30 mg Tablet] Docusate Sodium [Colace] 100 mg PO DAILY 01/15/20 01/15/20 Unknown History Morphine Sulfate 15 mg PO Q4HR PRN 01/15/20 01/15/20 01/15/20 03:00 History Polyethylene Glycol 3350 [Miralax] 17 gm PO DAILY 01/15/20 01/15/20 01/15/20 08:00 History Alprazolam [Xanax] 0.25 mg PO Q8H PRN PRN #30 tab 01/17/20 Unknown Rx Aspirin 325 mg PO DAILY #30 tab 01/17/20 Unknown Rx Atorvastatin Calcium [Lipitor] 20 mg PO QHS #30 tab 01/17/20 Unknown Rx Ondansetron [Zofran] 4 mg PO Q6H PRN PRN #30 tab 01/17/20 Unknown Rx - History of Present Illness-Neuro Nature of Presenting Problem: 60yof presents to ED by EMS cc AMS, dehydration and jaundice according to family. Pt was seen in ED 01/15/2020 and had a stroke. Pt has no movement to RLE/RUE. Pt has hx of colon cancer with METS to the liver. Pt is severely jaundice upon exam. Severity: reports: severe Timing: reports: still present Character of Altered Mental Status: reports: confused Similar Symptoms Previously?: Yes Recently seen or treated by another doctor?: Yes (seen in ED 01/15/2020) Review of Systems - Adult - REVIEW OF SYSTEMS - ADULT ROS:: ROS per family Constitutional: reports: see HPI, fatique. denies: chills, fever Eyes: reports: see HPI Ears, Nose, Mouth & Throat: reports: see HPI, other (dehydrated) Cardiovascular: reports: see HPI Respiratory: reports: see HPI Gastrointestinal: reports: see HPI Genitourinary: reports: see HPI Musculoskeletal: reports: see HPI Integumentary: reports: see HPI, other (jaundice) Neurological: reports: see HPI, other (AMS) Psychiatric: reports: see HPI Endocrine: reports: see HPI Hematologic/Lymphatic: reports: see HPI Allergic/Immunologic: reports: see HPI All Other Systems: Reviewed and Negative Past History - Adult - PAST MEDICAL HISTORY-ADULT Review of Records: reports: Old Records Reviewed, Nursing Assessment Review, Medications Reviewed, Social history reviewed & non-contributory. Major Childhood Illnesses: reports: denies history Cardiovascular: reports: denies history Respiratory: reports: denies history Gastrointestinal: reports: cancer Obstetrical/Gynecological: reports: denies history Genitourinary: reports: denies history Musculoskeletal: reports: denies history Neurological: reports: denies history Endocrine/Immune: reports: denies history Other Conditions: reports: denies history - PRIOR SURGERIES/PROCEDURES Surgical/Procedure History: reports: reviewed, not pertinent - IMMUNIZATION STATUS Childhood Immunizations: See Nurse Assessment Flu Vaccine: See Nurse Assessment - FAMILY HISTORY Family History: reviewed, not pertinent Physical Exam- Neurological - Physical Exam-Neuro Initial Vital Signs Reviewed: Yes General Appearance: alert, thin. negative: anxious, combative Eye Exam: bilateral eye: normal inspection, PERRL HENMT: normocephalic/atraumatic. negative: moist mucous membranes (dry) Respiratory: chest non-tender, lungs clear, normal breath sounds. negative: rhonchi, wheezing Cardiovascular: normal peripheral pulses, regular rate, rhythm. negative: bradycardia, tachycardia Abdominal Exam: normal bowel sounds, tenderness (generalized), other (colostomy bag led mid abdomen with brown stool in it) Extremity: swelling (4+ edema to bilateral lower extremities). negative: normal range of motion shipping support Exam: PERRL Motor/Sensory: weak motor strength RUE, weak motor strength RLE Integumentary: ecchymosis, jaundice. negative: normal turgor (poor), diaphoresis Psych/Mental Status: negative: anxious - Glascow Coma Scale Best Eye Response: (4) open spontaneously Progress - PLAN OF CARE/RESULTS Progress/Plan/Lab Results: Orders Category Date Time Status Admit - [facility] Routine AdmDCTranf 01/30/20 13:27 Active Day Cath Insertion ORDERED Care 01/30/20 10:10 Completed IV Insertion ORDERED Care 01/30/20 10:10 Completed Notify Physician ORDERED Care 01/30/20 10:10 Completed Notify Physician if: ORDERED Care 01/30/20 10:10 Completed Resuscitation Status Routine Care 01/30/20 10:58 Completed Hospice Care Consult [OM.CSS] Stat Cons 01/30/20 11:14 Active Palliative Care Consult [OM.CSS] Routine Cons 01/30/20 11:13 Active CHEST-PORTABLE [RAD] Stat Exams 01/30/20 10:13 Completed ABG [RESP] Routine Lab 01/30/20 10:30 Completed AMMONIA [CHEM] Stat Lab 01/30/20 10:48 Completed AMYLASE [CHEM] Stat Lab 01/30/20 10:48 Completed BLOOD CULTURE [BLDCUL] Stat Lab 01/30/20 10:48 Results CBC WITH ELECTRONIC DIFF [HEME] Stat Lab 01/30/20 10:48 Completed COMPREHENSIVE METABOLIC PANEL [CHEM] Stat Lab 01/30/20 10:48 Completed LACTATE, PLASMA [CHEM] Stat Lab 01/30/20 10:48 Completed LIPASE [CHEM] Stat Lab 01/30/20 10:48 Completed PRO B-NATRIURETIC PEPTIDE Stat Lab 01/30/20 10:48 Completed PROTIME WITH INR [COAG] Stat Lab 01/30/20 10:48 Completed PTT [COAG] Stat Lab 01/30/20 10:48 Completed 0.9% Sodium Chloride Inj [Ns] 1,000 ml Med 01/30/20 10:13 Discontinued IV 999 mls/hr 0.9% Sodium Chloride Inj [Ns] 1,000 ml Med 01/30/20 10:13 Discontinued IV 999 mls/hr 0.9% Sodium Chloride Inj [Ns] 100 ml Med 01/30/20 10:15 Discontinued Vasopressin [Pitressin] 40 unit IV As Directed mls/hr 0.9% Sodium Chloride Inj [Ns] 250 ml Med 01/30/20 10:15 Discontinued Epinephrine 4 mg IV As Directed mls/hr Dextrose 5%-0.45% NaCl Inj [D5 1/2 Ns] 250 ml Med 01/30/20 10:15 Discontinued Norepinephrine [Levophed] 8 mg IV As Directed mls/hr Fentanyl Med 01/30/20 12:07 Discontinued 50 microgm IV NOW ONE Morphine Med 01/30/20 10:57 Discontinued 4 mg IV NOW ONE Piperacillin/Tazobactam [Zosyn] 4.5 gm Med 01/30/20 10:15 Discontinued 0.9% Sodium Chloride Inj [Ns] 100 ml IV Q6H Transfer/Admit Order [TRANSFER] Routine Transfer 01/30/20 12:40 Completed 1113- Pt family is at bedside and all are in agreement to not give pt any pressors, CPR or intubation. The family wants us to contact Hospice, so we have contacted the ED Hospice nurse. Result Diagrams: 01/30/20 10:48 01/30/20 10:48 - REASSESSMENT Reassessment #1 Time Reassessed: 12:36 Status: improving (Some pain relief with Fentanyl. Has been seen in ED by Hospice. Family wants her to go on hospice, however, hospice request General Inpatient admission to hospice in house, that family is not ready and patient may be too sick to go home today from ER and get appropriate care. Patient has been given IVF and zosyn, morphine/and fentanyl. Patient has severe sepsis, acute liver failure, renal failure with hyperkalemia and colon cancer with mets. Family wants no intubation/cpr/pressors or other extreme resuscitative measures) - EKG 1 Time of EKG reading by physician:: 11:42 EKG Read and Signed by:: Jose Newsome EKG Interpretation (*Must complete 3 of following elements*): Abnormal Rate: 83 Rhythm: NSR QRS: other (low voltage) ST Wave: non-specific ST changes - XRAY 1 XRAY: Bilateral XRAY Study: Chest Impression: See EMR Report (IMPRESSION: Right lower lobe atelectasis versus pneumonia. Electronically signed by Onesimo Mckeon 01/30/2020 11:13 AM) - CONSULTS/PCP/HOSPITALIST Notification #1 *Consult/PCP/Hospitalist*: Hospitalist Consult Disposition: Will see in ED, Admit Departure - Departure Date of Disposition Decision: 01/30/20 Time of Disposition Decision: 13:00 DIAGNOSIS: Severe sepsis with acute organ dysfunction, Colon cancer metastasized to liver, Hepatic encephalopathy syndrome Disposition: ADMITTED INPATIENT 09 Certified Medical Emergency: Emergent Condition: - Critical Care Note This patient required my direct & personal management of CC.: Yes Total Time (mins): 50 Critical Care Statement: This patient required my direct personal management to treat or rule out processes, the absence of which, could potentiallly result in sudden, clinically significant life or limb threatening deterioration. Attestation - Physician/ PUSHPA Attestation Patient care was provided by Advanced Practice Provider:: No The physician spent face to face time with patient:: Yes Advanced Practice Provider documentation review:: Supervising physician onsite and consulted in the evaluation and care of this patient. The physician did have a face to face encounter with the patient. This chart was documented by the indicated scribe, (Minal Heaton Scribe) and accurately reflects the services I performed and decisions made by me, Jose Newsome MD, as attested by the provider's signature.
== END 2020-01-31 02:25 | disposition expired | DRG 871 ==
LOC: SUPCPDRO → EDBD → ED 10:09 → 4N 12:50
PROVIDERS: ATTEND Internal Medicine